=== PATIENT | male | born 1950 | race Caucasian/White ===

== ENCOUNTER 2017-06-13 11:51 | Inpatient (IN) ==
[2017-06-13] MEDS ORDERED: NS 1,000 ML IV ONE ×2 (12:12→13:55)
[2017-06-13] MEDS ORDERED: ONDANSETRON 4 MG/2 ML INJECTION IVP ONE (12:13)
--- OUTSIDE RECORDS SUMMARY | 2017-06-13 12:35 | External Medical Summary | Encounter Summary ---
:1950 Author Organization [facility] Address [address] [place] [address] Care Team Providers Name Role Phone Jeniffer Ochoa DO Unavailable Jaylen Burrows MD Primary Care Provider Ramon Pineda MD Unavailable Reason for Visit Reason Comments Memory Loss follow up Consult, Test & Treat (Routine) Status Reason Specialty Diagnoses / Procedures Referred By Referred To Contact Contact Authorized Neurology Diagnoses Other frontotemporal dementia [facility] [address] [address] Encounter Details Date Type Department Care Team Description 06/05/2017 Office Visit [facility] Ramon Pineda, Frontotemporal dementia (Primary Dx); Physicians - Other secondary parkinsonism (HCC) Neurology [address] [place] [address] [address] [place] [phone] Social History Tobacco Use Types Packs/Day Years Used Date Former Smoker Cigarettes 0.5 40 Quit: 03/14/2015 Smokeless Tobacco: Former User Alcohol Use Drinks/Week oz/Week Comments No Sex Assigned at Date Recorded Not on file as of this encounter Last Filed Vital Signs Vital Sign Reading Time Taken Blood Pressure 123/69 06/05/2017 12:46 PM CDT Pulse 63 06/05/2017 12:46 PM CDT Temperature - - Respiratory Rate - - Oxygen Saturation - - Inhaled Oxygen Concentration - - Weight 90.7 kg (200 lb) 06/05/2017 12:46 PM CDT Height 182.9 cm (6') 06/05/2017 12:46 PM CDT Body Mass Index 27.12 06/05/2017 12:46 PM CDT in this encounter Instructions Patient Instructions - Ramon Pineda MD - 06/05/2017 12:30 PM CDTFormatting of this note may be different from the original. For questions about your visit or medications Call Ida Dennis - For questions about scheduling future visits, procedures, etc Call - ; Fax - LUNCH AND LEARN The [facility] invites you to lunch! Spend a lunch hour with us as experts share their knowledge on various topics about healthy aging. 11:30a-12:30p [facility] [place], [address] [place] [address] June 15, 2017 Cross Train Your Brain July 13, 2017 Aging and Changing -- Does it Impact How You Drive? August 10, 2017 Providing Support & Understanding for Family Caregivers of AD September 14, 2017 Not All Dementia is Created Equal Lunch is provided and reservations are required. Please RSVP through our website at [email or web address] or by calling Help us fight Alzheimer's Consider volunteering to be a study participant in one of our many research studies. We have a variety of research opportunities available for people with and without memory problems. Our program is dedicated to developing better treatments and ways to prevent memory problems for those without problems. We were designated in 2010 as one of the [facility]'s Alzheimer's Disease Centers, joining 31 [facility] institutions working together to better treat and diagnose Alzheimer's. You may have signed our consent form allowing us to contact you if you appear to qualify for a study. But, if you are interested in finding out more about our research right now, please call our program at or go to our web site at [email or web address] for more information. Other Recommendations and Information Stay physically and mentally active. -- Exercise daily. Walking as little as 30 minutes several days a week can have significant health benefits. -- Stay socially and mentally active. Read and work crossword puzzles if you enjoy these activities. Maintaining active social contacts is a good way to stimulate your brain too. Eat a balanced diet. Get plenty of whole grains, fruits, and vegetables every day. If you are not hungry at mealtimes, eat snacks at midmorning and in the afternoon. Try drinks such as Boost, Ensure, or Sustacal if you arehaving trouble keeping your weight up. Driving Deciding to stop driving is very hard for many people. Driving is an important part of one's independence. If you or your family are beginning to have some concerns about your driving, consider a driving evaluation. Driving evaluations can be obtained with a prescription from your Dementia Specialist at : -[facility] ([phone]) or [email or web address] -[facility] ([phone]) or www.[email or web address] -[facility] ([phone]) or http:// [email or web address] Core Composer Machine Tender Our social research assistant Luciano Paul is available to discuss a wide range of issues. Please call Luciano at [phone]. Issues you might consider discussing include 1) Caregiver stress and burden, especially common associated issues such as depression and anxiety. 2) retirement planning including options for in-home care, day programs, and skilled or assisted living facilities 3) Advanced directives 4) Any other issues related to having or caring for someone with memory problems. Advanced Directives If you have not already done so, make a list of advance directives. Advance directives are instructions to your doctor and family members about what kind of care you want if you become unable to speak or express yourself. Talk to a marine equipment test engineer about making a will, if you do not already have one. You can also talk to our Core Composer Machine Tender, Luciano Paul, to discuss this further ([phone]). Education and Support Alzheimer's Association The Alzheimer's Association is an excellent resource for patients and their families. They offer a variety of services and have weekly support groups for patients and their family members. The [facility] [place] chapter is located in [place] ([address] [place] [address]) and serves the [place] area. Please call them to see how they can help ([phone]) or visit their web site at [email or web address]. [facility] Support Group We offer a monthly support group led by Sheila De Jesus. The support group is the sunday of every month from 2 to 3:30 at the [facility] in the [facility] ([address]), [address] [place] [address]. [facility]: The [facility] is a program of the [facility] andoffers programs to empower and transform the mind, body and spirit of people living with serious andchronic physical illness and for their supporters. Programs are provided on topics such as managingthe emotions of living with illness, support for the supporters, resilience, meditation, nutrition, yoga, spirituality, legal issues, communication, brea chi, cancer support, to name a few. [facility] innovative education and support programs inspire people to take charge of their illness and to live life to its fullest. [facility] is located in [place] at [address], [address], [place] [address]. For more information, call or visit their website at [email or web address] for more information and to see their class schedule. If you would like a tour or want help deciding which programs would best fit your needs please ask for Bety Rodríguez, [facility] Adult Driver'S License Reviewing Officer. Contact Us [facility] [address] [facility] [place] [address] [place] [address] To contact us for information on research studies and ongoing trials Main Line: Fax number: For questions about a doctor visit or medications Call Ida Dennis - For questions about scheduling future visits, procedures, etc Call - ; Website: [email or web address] Facebook: [email or web address] in this encounter Progress Notes Ramon Pineda MD - 06/05/2017 12:30 PM CDTFormatting of this note may be different from the original. Referring Provider: Valerie Reinoso MD [address] [place] [address] Chief Complaint: Thomas Calzada is a 66 y.o. old male here for History provided by: , daughter, granddaugther. Onset: 10 years Course: progressive HISTORY Cognitive History (i.e. memory, orientation, judgment): Non verbal. No meaningful interactions with others. Functional History (i.e. home and hobbies, community affairs, bathing / grooming ): Still feeds himself though he may put the spoon to far into his mouth. Less mobile and now using a wheelchair. Unable to do anything on his own. Drinks thickened water, pureed food. Behavioral and Neuropsychiatric History (i.e., depression, agitation, behavior and personality changes): PHQ-2 Score: 3 (06/05/2017 12:47 PM) No meaningful interaction, no clear depression. At times hemay moan and rub his head. Other ROS Visual hallucinations: no Parkinsonism / tremors:stiff neck, legs (right > left) Gait Changes: yes. No longer walking. Vision problems: no Wt loss: no All other ROS are negative Caregiver Ward and Social Support: She still works. 4am to 7am. Doing well with him at home buthas some ups and downs. Safety Assessment (driving, falls, etc): No driving, wheelchair bound now. MEDICATIONS aspirin 81 mg chewable tablet Take 81 mg by mouth daily. ERGOCALCIFEROL (VITAMIN D2) (VITAMIN D PO) Take 4,000 Int'l Units by mouth daily. omeprazole DR(+) (PRILOSEC) 40 mg capsule Take 40 mg by mouth daily. SENNOSIDES (SENNA PO) Take by mouth daily. sertraline (ZOLOFT) 50 mg tablet Take 25 mg by mouth daily. simvastatin (ZOCOR) 40 mg tablet Take 40 mg by mouth at bedtime daily. tamsulosin (FLOMAX) 0.4 mg capsule Take 0.4 mg by mouth daily. Do not crush , chew or open capsules. Take 30 minutes following the same meal each day. High Risk Medication Review: none Relevant Medical History / Contributing Factors to Cognition: none PHYSICAL AND COGNITIVE EXAM Vital Signs: BP 123/69 | Pulse 63 | Ht 182.9 cm (72") | Wt 90.7 kg (200 lb) | BMI 27.12 kg/m Mental Status: Nonverbal. Not following commands. IN wheelchair. Cranial Nerves Extraocular movements intact Pupils equal and reactive to light No facial assymetry Tongue and palate midline Motor Not following commands. Tone increased throughout and in the neck, right > left. Rigid in rightarm and leg > left. Reflexes Symmetric, Increased bilaterally, Toes downgoing Coordination Unable to test Gait Wheelchair bound. Not tested. Neurobehavioral Testing: Untestable. DIAGNOSIS AND PLAN DIAGNOSIS: Problem Parkinsonism (Hcc) Rigidity in all extremities, truncal rigidity. Related to FTD. Frontotemporal Dementia Onset of language disturbance beginning around the age of 56 that has been progressive and he is now non-conversant. MRI shows temporal atrophy with predominant left temporal atrophy anteriorly. 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 Stage: CDR=3, severe dementia. CARE PLAN Cognitive therapy plan Cont sertraline Neuropsychiatric therapy Cont sertraline Continue home health Lifestyle Recommendations Encouraged the to consider penitentiary care options. Referrals Return to clinic in 1 year. in this encounter Plan of Treatment Not on fileas of this encounter Visit Diagnoses Diagnosis Frontotemporal dementia - Primary Other frontotemporal dementia Other secondary parkinsonism (HCC)
--- OUTSIDE RECORDS SUMMARY | 2017-06-13 12:35 | External Medical Summary | Continuity of Care Document ---
:1950 Author Organization [facility] Care Team Providers Name Role Phone Browsersoft Unavailable Unavailable Encounters Location Location Encounter Encounter Reason Attending ADM DC Status Source Details Type Number For Provider Date Date Visit Shaq DORANTES 06/05 06/05 Active [facility]2017 [facility]
--- OUTSIDE RECORDS SUMMARY | 2017-06-13 12:35 | External Medical Summary | Clinical Summary ---
:1950 Author Organization [facility] Address [address] [place] [address] Care Team Providers Name Role Phone Jeniffer Ochoa DO Unavailable Jaylen Burrows MD Primary Care Provider Ramon Pineda MD Unavailable Source Comments Some departments are not documenting in the electronic medical record. If you do not see the information that you expected, contact Release of Information in the Health Information Management department at [phone] for further assistance in locating additional records.[facility] Allergies No Known Allergies Current Medications Prescription Sig. Disp. Refills Start Date End Date Status aspirin 81 mg Take 81 mg by Active chewable tablet mouth daily. ERGOCALCIFEROL Take 4,000 Int'l Active (VITAMIN D2) (VITAMIN Units by mouth D PO) daily. omeprazole DR(+) Take 40 mg by Active (PRILOSEC) 40 mg mouth daily. capsule simvastatin (ZOCOR) Take 40 mg by Active 40 mg tablet mouth at bedtime daily. sertraline (ZOLOFT) Take 25 mg by Active 50 mg tablet mouth daily. tamsulosin (FLOMAX) Take 0.4 mg by Active 0.4 mg capsule mouth daily. Do not crush, chew or open capsules. Take 30 minutes following the same meal each day. SENNOSIDES (SENNA PO) Take by mouth Active daily. lactobacillus Take 1 capsule 06/05/2017 Discontinued rhamnosus GG by mouth as (LACTOBACILLUS directed daily RHAMNOSUS (GG)) 15 with breakfast. billion cell cpSP capsule Active Problems Problem Noted Date Parkinsonism (HCC) 06/05/2017 Overview: Rigidity in all extremities, truncal rigidity. Related to FTD. Frontotemporal dementia 02/15/2015 Overview: Onset of language disturbance beginning around the age of 56 that has been progressive and he is now non-conversant. MRI shows temporal atrophy with predominant left temporal atrophy anteriorly. Cours e is consistent with primary progressive aphasia, semantic variant with etiology of FTD. Last Assessment & Plan: Since his last visit he has declined. He has been having more falls and is rarely conversant. Incontinent of urine and stool. He can feed himself if food is prepared. and daughter continue to car e for him at home but it is getting stressful for both of them. They have looked at a retirement care facility but do not feel either of them are ready for placement yet. We discussed a palliative care consult and they were in agreement. Dr. Pineda was involved in this visit to perform parts of the exam, discuss current condition and disease progression. Discussed retirement care options and when to decide to place him in LTC. We will continue the current dose of sertraline as his mood seems to be stable. Plan: Recommend looking into [facility] Facility due to increased concern for falls. Encourage gait belt when ambulating. Encourage use of walker when ambulating. Stay active mentally, physically and socially. Range of motion to joints daily if possible. Recommend support groups for FTD and Respite Care to help with keeping him at home as long as possible. Palliative care consult. Will consult Luciano Paul to help with palliative care consult. [facility] the [facility] as needed. Acquired aphasia 02/15/2015 Encounters Date Type Specialty Care Team Description 06/05/2017 Office Visit Neurology Ramon Pineda MD Frontotemporal dementia (Primary Dx); Other secondary parkinsonism (HCC) from Last 3 Months Family History Medical History Relation Name Comments Cancer Maternal Grandmother Cancer Mother Cancer Paternal Grandmother Cancer Sister Relation Name Status Comments Maternal Grandmother Mother Paternal Grandmother Sister Alive Social History Tobacco Use Types Packs/Day Years Used Date Former Smoker Cigarettes 0.5 40 Quit: 03/14/2015 Smokeless Tobacco: Former User Alcohol Use Drinks/Week oz/Week Comments No Sex Assigned at Date Recorded Not on file Last Filed Vital Signs Vital Sign Reading Time Taken Blood Pressure 123/69 06/05/2017 12:46 PM CDT Pulse 63 06/05/2017 12:46 PM CDT Temperature - - Respiratory Rate - - Oxygen Saturation 99% 02/12/2015 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
--- OUTSIDE RECORDS SUMMARY | 2017-06-13 12:36 | External Medical Summary | Referral Summary ---
:1950 Author Organization [facility], [facility] Address [address] [place] [address] [place] [id number] Care Team Providers Name Role Phone Jaylen Burrows Primary Care Physician Encounter VC Date(s): 04/14/15 - 04/14/15 [facility], [address] [place] [phone] [place] Discharge Diagnosis: Conjunctivitis Discharge Disposition: 01-Home or Self Care Attending Physician: Sam Reyes PA-C Admitting Physician: Sam Reyes PA-C Vital Signs Most recent to oldest [Reference Range]: 1 Temperature Tympanic [36.6-38.1 degC] 36.7 degC (04/14/15 5:40 PM) Peripheral Pulse Rate [60-100 bpm] 68 bpm (04/14/15 5:40 PM) Blood Pressure [90-140/60-90 mmHg] 124/70 mmHg (04/14/15 5:40 PM) SpO2 96 % (04/14/15 5:40 PM) Problem List Condition Effective Dates Status Health Status Informant Adult-onset obesity(Confirmed) Active Benign prostate Active hypertrophy(Confirmed) Colonoscopy(Confirmed)1, 2 05/11/03 Resolved Cough(Confirmed) Active Dementia(Confirmed) Active GERD without esophagitis(Confirmed) Active Hyperlipidemia(Confirmed) Active Kidney stone(Confirmed) Active Lung nodule(Confirmed) Active Parkinson disease(Confirmed) Active Prostate nodule(Confirmed) Active Current smoker(Confirmed) Active Wheezing(Confirmed) Active [id number] Allergies, Adverse Reactions, Alerts No Known Allergies Medications aspirin 81 mg, Oral, Daily, 0 Refill(s) Start Date: 09/26/13 Status: OrderedDulcolax Stool Softener mg, Oral, Daily, 0 Refill(s) Start Date: 03/26/15 Status: OrderedPriLOSEC 40 mg oral delayed release capsule See Instructions, TAKE ONE CAPSULE BY MOUTH ONCE A DAY, # 30 caps, 5 Refill(s), eRx: [facility] #[id number], TAKE ONE CAPSULE BY MOUTH ONCE A DAY Start Date: 11/02/14 Status: Orderedsertraline Oral, Daily, 0 Refill(s) Start Date: 04/14/15 Status: Orderedsimvastatin 40 mg oral tablet See Instructions, TAKE ONE TABLET BY MOUTH EVERY NIGHT AT BEDTIME, # 90 tabs, eRx: [facility] #[id number], TAKE ONE TABLET BY MOUTH EVERY NIGHT AT BEDTIME Start Date: 01/08/15 Status: OrderedVitamin B-12 0 Refill(s) Start Date: 10/30/13 Status: OrderedVitamin D with Minerals oral tablet 1 tabs, Oral, Daily, 0 Refill(s) Start Date: 09/26/13 Status: Ordered Results No data available for this section Immunizations No data available for this section Procedures Procedure Date Related Diagnosis Body Site Colonoscopic polypectomy1 10/17/13 Esophagogastroduodenoscopy and biopsy2 10/17/13 Colonoscopy3 05/11/03 Esophagogastroduodenoscopy and biopsy4 05/11/03 1Tubular adenoma 1, repeat in 5 [id number] chronic inflammation distal esophagus, no Grace's, no cancer, continue [id number] antritis, minimal grace's metaplasia, distal esophagitis Social History Social History Type Response Smoking Status Former smoker; Type: Cigarettes Assessment and Plan Extracted from: Title: eyes Author: Sam Reyes PA-C Date: 04/14/15 Assessment/Plan Conjunctivitis This is an allergic conjunctivitisWe will perform an eyewash, I recommended Visine A; follow upwith Dr. Burrows if symptoms worsen , if he develops purulent drainage mucoid materi al significant redness or pain in the eye or if he does not improve. I recommended continuing Benadryl at at bedtime if he still having evening symptoms and seems to tolerate it well.
--- OUTSIDE RECORDS SUMMARY | 2017-06-13 12:36 | External Medical Summary | Referral Summary ---
:1950 Author Organization [facility], [facility] Address [address] [place] [address] [place] [phone] Care Team Providers Name Role Phone RadhasusanJaylen kahn Primary Care Physician Encounter VC Date(s): 10/23/14 - 10/23/14 [facility] [address] [place] [address] [place] [phone] [place] Discharge Diagnosis: Benign prostatic hyperplasia Discharge Diagnosis: Prostate nodule Discharge Disposition: 01-Home or Self Care Attending Physician: Natalio Jimenez JR, MD Admitting Physician: Natalio Jimenez JR, MD Vital Signs Most recent to oldest [Reference Range]: 1 Peripheral Pulse Rate [60-100 bpm] 72 bpm (10/23/14 2:33 PM) Blood Pressure [90-140/60-90 mmHg] 118/64 mmHg (10/23/14 2:33 PM) Problem List Condition Effective Dates Status Health Status Informant Adult-onset obesity(Confirmed) Active Benign prostate Active hypertrophy(Confirmed) Colonoscopy(Confirmed)1, 2 05/11/03 Resolved Cough(Confirmed) Active Dementia(Confirmed) Active GERD without esophagitis(Confirmed) Active Hyperlipidemia(Confirmed) Active Kidney stone(Confirmed) Active Lung nodule(Confirmed) Active Parkinson disease(Confirmed) Active Prostate nodule(Confirmed) Active Current smoker(Confirmed) Active Wheezing(Confirmed) Active [id number] Allergies, Adverse Reactions, Alerts No Known Allergies Medications aspirin 81 mg, Oral, Daily, 0 Refill(s) Start Date: 09/26/13 Status: Orderedescitalopram 10 mg oral tablet 0.5 tabs, Oral, Daily[facility] Refill([facility]) Start Date: 05/22/14 Status: OrderedpredniSONE 20 mg oral tablet 20 mg 1 tabs, Oral, Daily, X 5 days, # 5 tabs, 0 Refill(s), Pharmacy: [facility] #[id number], 1 tabs Oral Daily,x5 days Start Date: 01/07/15 Stop Date: 01/12/15 Status: OrderedPriLOSEC 40 mg oral delayed release capsule See Instructions, TAKE ONE CAPSULE BY MOUTH ONCE A DAY, # 30 caps, 5 Refill(s), eRx: [facility] #[id number], TAKE ONE CAPSULE BY MOUTH ONCE A DAY Start Date: 11/02/14 Status: Orderedsimvastatin 40 mg oral tablet See Instructions, TAKE ONE TABLET BY MOUTH EVERY NIGHT AT BEDTIME, # 90 tabs, eRx: [facility] #[id number], TAKE ONE TABLET BY MOUTH EVERY NIGHT AT BEDTIME Start Date: 01/08/15 Status: OrderedVitamin B-12 0 Refill(s) Start Date: 10/30/13 Status: OrderedVitamin D with Minerals oral tablet 1 tabs, Oral, Daily, 0 Refill(s) Start Date: 09/26/13 Status: Ordered Results Chemistry Most recent to oldest [Reference Range]: 1 PSA (wihout Reflex Free) [0.0-4.5 ng/mL] 0.9 ng/mL 1 (10/23/14 2:00 PM) 1Result Comment: [facility] PSA Best Practice Guidelines: Age-Adjusted PSA Values by Ethnic Group Age Range Asians - Caucasians Americans 40-49 0-2.0 0-2.0 0-2.5 50-59 0-3.0 0-4.0 0-3.5 60-69 0-4.0 0-4.5 0-4.5 70-79 0-5.0 0-5.5 0-6.5 Immunizations No data available for this section Procedures Procedure Date Related Diagnosis Body Site Colonoscopic polypectomy1 10/17/13 Esophagogastroduodenoscopy and biopsy2 10/17/13 Colonoscopy3 05/11/03 Esophagogastroduodenoscopy and biopsy4 05/11/03 1Tubular adenoma 1, repeat in 5 [id number] chronic inflammation distal esophagus, no Grace's, no cancer, continue [id number] antritis, minimal grace's metaplasia, distal esophagitis Social History Social History Type Response Smoking Status Current every day smoker; Type: Cigarettes Assessment and Plan Extracted from: Title: Ambulatory Patient Education Author: Natalio Jimenez JR, MD Date: Follow Up With: Where: When: Jaylen Bolanosfemi [address] [place] [address] Drive; [place] [address] Business (1) Within 3 to 5 days Comments: Follow Up With: Where: When: Natalio Barbara [address] [place] [address] Drive; [place] [address] Business (1) In 1 year 10/24/2015 Comments: Extracted from: Title: Office Visit Note Author: Natalio Jimenez JR, MD Date: 10/23/14 Assessment/Plan Benign prostatic hyperplasia patient not taking any prostate medication at present. He had a PSA done today I don't have that report yet Ordered: Office Visit Level 3 Est 03740 Prostate nodule I could not feel any prostatic nodule on this prostate examination today. Recheck in my office in one year PSA a week before next visit or to come and see me sooner if having troubles with urination
--- OUTSIDE RECORDS SUMMARY | 2017-06-13 12:36 | External Medical Summary | Referral Summary ---
:1950 Author Organization [facility] Address [address] [place] [address] [place] [phone] Care Team Providers Name Role Phone Jaylen Burrows Primary Care Physician Encounter VC Date(s): 10/23/14 - 10/23/14 [facility] [address] [place] [address] [place] [phone] [place] Discharge Diagnosis: Benign [...] Condition Effective Dates Status Health Status Informant Benign prostate Active hypertrophy(Confirmed) Colonoscopy(Confirmed)1, 2 05/11/03 Resolved Dementia(Confirmed) Active GERD without esophagitis(Confirmed) Active Hyperlipidemia(Confirmed) Active Kidney stone(Confirmed) Active Parkinson disease(Confirmed) Active Prostate nodule(Confirmed) Active [id number] Allergies, Adverse Reactions, Alerts No Known Allergies Medications aspirin 81 mg, Oral, Daily, 0 Refill(s) Start Date: 09/26/13 Status: Orderedescitalopram 10 mg oral tablet 0.5 tabs, Oral, [facility] Start Date: 05/22/14 Status: OrderedPriLOSEC 40 mg oral delayed release capsule See Instructions, TAKE ONE CAPSULE BY MOUTH ONCE A DAY, # 30 caps, 5 Refill(s), eRx: [facility] #[id number], TAKE ONE CAPSULE BY MOUTH ONCE A DAY Start Date: 11/02/14 Status: Orderedsimvastatin 40 mg oral tablet See Instructions, TAKE ONE TABLET BY MOUTH EVERY NIGHT AT BEDTIME, # 90 tabs, eRx: [facility] #[id number], TAKE ONE TABLET BY MOUTH EVERY NIGHT AT BEDTIME Start Date: 10/05/14 Status: OrderedVitamin B-12 0 Refill(s) Start Date: [...] 05/11/03 1Tubular adenoma 1, repeat in 5 [id number] chronic inflammation distal esophagus, no Grace's, no cancer, continue [id number] antritis, minimal grace's metaplasia, distal esophagitis Social History Social History Type Response Smoking Status Current every day smoker; Type: Cigarettes Assessment and Plan Extracted from: Title: Ambulatory Patient Education Author: Natalio Jimenez JR, MD Date: Follow Up With: Where: When: Jaylen Burrows [address] [place] [address] Drive; [place] [address] Business (1) Within 3 to 5 days Comments: Follow Up With: Where: When: Natalio Jimenez [address] [place] [address] Drive; [place] [address] Business (1) In 1 year 10/24/2015 Comments: Extracted from: Title: Office Visit Note Author: Natalio Jimenez JR, MD Date: 10/23/14 Assessment/Plan Benign prostatic hyperplasia patient not taking any prostate medication at present. He had a PSA done today I don't have that report yet Ordered: Office Visit Level 3 Est 10291 Prostate nodule I could not feel any prostatic nodule on this prostate examination today. Recheck in my office in one year PSA a week before next visit or to come and see me sooner if having troubles with urination
--- OUTSIDE RECORDS SUMMARY | 2017-06-13 12:36 | External Medical Summary | Referral Summary ---
:1950 Author Organization [facility] Address [address] [place] [address] [place] [phone] Care Team Providers Name Role Phone RadhasusanJaylen kahn Primary Care Physician Encounter VC Date(s): 10/23/14 - 10/23/14 [facility] [address] [place] [address] [place] [phone] [place] Discharge Diagnosis: Benign [...] nodule(Confirmed) Active Current smoker(Confirmed) Active Wheezing(Confirmed) Active [id number] Allergies, Adverse Reactions, Alerts No Known Allergies Medications aspirin 81 mg, Oral, Daily, 0 Refill(s) Start Date: 09/26/13 Status: Orderedescitalopram 10 mg oral tablet 0.5 tabs, Oral, Daily[facility], [facility] Refill(s) Start Date: 05/22/14 Status: OrderedpredniSONE 20 mg oral tablet 20 mg 1 tabs, Oral, Daily, X 5 days, # 5 tabs, 0 Refill(s), Pharmacy: [facility] #[id number], 1 tabs Oral Daily,x5 days Start Date: 01/07/15 Stop Date: 01/12/15 Status: OrderedPriLOSEC 40 mg oral delayed release capsule See Instructions, TAKE ONE CAPSULE BY MOUTH ONCE A DAY, # 30 caps, 5 Refill(s), eRx: [facility] #[id number], TAKE ONE CAPSULE BY MOUTH ONCE A DAY Start Date: 11/02/14 Status: Orderedsimvastatin 40 mg oral tablet See Instructions, TAKE ONE TABLET BY MOUTH EVERY NIGHT AT BEDTIME, # 90 tabs, eRx: [facility] #[id number], TAKE ONE TABLET BY MOUTH EVERY NIGHT [...] 05/11/03 1Tubular adenoma 1, repeat in 5 [id number] chronic inflammation distal esophagus, no Grace's, no cancer, continue [id number] antritis, minimal grace's metaplasia, distal esophagitis Social History Social History Type Response Smoking Status Current every day smoker; Type: Cigarettes Assessment and Plan Extracted from: Title: Ambulatory Patient Education Author: Natalio Jimenez JR, MD Date: Follow Up With: Where: When: Jaylen Bolanosfemi [address] [place] [address] Drive; [place] [address] Business (1) Within 3 to 5 days Comments: Follow Up With: Where: When: Natalio Barbara [address] [place] [address] Drive; [place] [address] Business (1) In 1 year 10/24/2015 Comments: Extracted from: Title: Office Visit Note Author: Natalio Jimenez JR, MD Date: 10/23/14 Assessment/Plan Benign prostatic hyperplasia patient not taking any prostate medication at present. He had a PSA done today I don't have that report yet Ordered: Office Visit Level 3 Est 30918 Prostate nodule I could not feel any prostatic nodule on this prostate examination today. Recheck in my office in one year PSA a week before next visit or to come and see me sooner if having troubles with urination
--- OUTSIDE RECORDS SUMMARY | 2017-06-13 12:36 | External Medical Summary | Referral Summary ---
:1950 Author Organization [facility] Address [address] [place] [address] [place] [phone] Care Team Providers Name Role Phone RadhasusanJaylen kahn Primary Care Physician Encounter VC Date(s): 10/23/14 - 10/23/14 [facility] [address] [place] [address] [place] [phone] [place] Discharge Diagnosis: Benign [...] nodule(Confirmed) Active Current smoker(Confirmed) Active Wheezing(Confirmed) Active [id number] Allergies, Adverse Reactions, Alerts No Known Allergies Medications aspirin 81 mg, Oral, Daily, 0 Refill(s) Start Date: 09/26/13 Status: Orderedescitalopram 10 mg oral tablet 0.5 tabs, Oral, Daily[facility], [facility] Refill(s) Start Date: 05/22/14 Status: OrderedpredniSONE 20 mg oral tablet 20 mg 1 tabs, Oral, Daily, X 5 days, # 5 tabs, 0 Refill(s), Pharmacy: [facility] #[id number], 1 tabs Oral Daily,x5 days Start Date: 01/07/15 Stop Date: 01/12/15 Status: OrderedPriLOSEC 40 mg oral delayed release capsule See Instructions, TAKE ONE CAPSULE BY MOUTH ONCE A DAY, # 30 caps, 5 Refill(s), eRx: [facility] #[id number], TAKE ONE CAPSULE BY MOUTH ONCE A DAY Start Date: 11/02/14 Status: Orderedsimvastatin 40 mg oral tablet See Instructions, TAKE ONE TABLET BY MOUTH EVERY NIGHT AT BEDTIME, # 90 tabs, eRx: [facility] #[id number], TAKE ONE TABLET BY MOUTH EVERY NIGHT [...] 05/11/03 1Tubular adenoma 1, repeat in 5 [id number] chronic inflammation distal esophagus, no Grace's, no cancer, continue [id number] antritis, minimal grace's metaplasia, distal esophagitis Social History Social History Type Response Smoking Status Current every day smoker; Type: Cigarettes Assessment and Plan Extracted from: Title: Ambulatory Patient Education Author: Natalio Jimenez JR, MD Date: Follow Up With: Where: When: Jaylen Bolanosfemi [address] [place] [address] Drive; [place] [address] Business (1) Within 3 to 5 days Comments: Follow Up With: Where: When: Natalio Barbara [address] [place] [address] Drive; [place] [address] Business (1) In 1 year 10/24/2015 Comments: Extracted from: Title: Office Visit Note Author: Natalio Jimenez JR, MD Date: 10/23/14 Assessment/Plan Benign prostatic hyperplasia patient not taking any prostate medication at present. He had a PSA done today I don't have that report yet Ordered: Office Visit Level 3 Est 88815 Prostate nodule I could not feel any prostatic nodule on this prostate examination today. Recheck in my office in one year PSA a week before next visit or to come and see me sooner if having troubles with urination
--- OUTSIDE RECORDS SUMMARY | 2017-06-13 12:36 | External Medical Summary | Referral Summary ---
:1950 Author Organization [facility] [place] [phone] Care Team Providers Name Role Phone Jaylen Burrows Primary Care Physician Encounter VC Date(s): 01/07/15 - 01/07/15 [facility] [place] [phone] [place] Discharge Disposition: 01-Home or Self Care Attending Physician: Jaylen Burrows MD Admitting Physician: Jaylen Burrows MD Vital Signs Most recent to oldest [Reference Range]: 1 Blood Pressure [90-140/60-90 mmHg] 120/80 mmHg (01/07/15 3:59 PM) Problem List Condition Effective Dates Status Health Status Informant Adult-onset obesity(Confirmed) Active Benign prostate Active hypertrophy(Confirmed) Colonoscopy(Confirmed)1, 2 05/11/03 Resolved Cough(Confirmed) Active Dementia(Confirmed) Active GERD without esophagitis(Confirmed) Active Hyperlipidemia(Confirmed) Active Kidney stone(Confirmed) Active Lung nodule(Confirmed) Active Parkinson disease(Confirmed) Active Prostate nodule(Confirmed) Active Current smoker(Confirmed) Active Wheezing(Confirmed) Active [id number] Allergies, Adverse Reactions, Alerts No Known Allergies Medications aspirin 81 mg, Oral, Daily, 0 Refill(s) Start Date: 09/26/13 Status: Orderedescitalopram 10 mg oral tablet 0.5 tabs, Oral, Daily, got from [facility], 0 Refill(s) Start Date: 05/22/14 Status: OrderedpredniSONE 20 mg oral tablet 20 mg 1 tabs, Oral, Daily, X 5 days, # 5 tabs, 0 Refill(s), Pharmacy: [facility] #[id number], 1 tabs Oral Daily,x5 days Start Date: 01/07/15 Stop Date: 01/12/15 Status: OrderedPriLOSEC 40 mg oral delayed release capsule See Instructions, TAKE ONE CAPSULE BY MOUTH ONCE A DAY, # 30 caps, 5 Refill(s), eRx: [facility] #[id number], TAKE ONE CAPSULE BY MOUTH ONCE A DAY Start Date: 11/02/14 Status: Orderedsimvastatin 40 mg oral tablet See Instructions, TAKE ONE TABLET BY MOUTH EVERY NIGHT AT BEDTIME, # 90 tabs, eRx: [facility] #[id number], TAKE ONE TABLET BY MOUTH EVERY NIGHT [...] 05/11/03 1Tubular adenoma 1, repeat in 5 [id number] chronic inflammation distal esophagus, no Grace's, no cancer, continue [id number] antritis, minimal grace's metaplasia, distal esophagitis Social History Social History Type Response Smoking Status Current every day smoker; Type: Cigarettes Assessment and Plan Extracted from: Title: Ambulatory Patient Education Author: Jaylen Burrows MD Date: Family Medicine Alzheimer Disease Alzheimer disease is a mental disorder. It causes memory loss and loss of other mental functions, such as learning, thinking, problem solving, communicating, and completing tasks. The mental losses inte rfere with the ability to perform daily activities at work, at home, or in social situations. Alzheimer disease usually starts in a person's late 60s or early 70s but can start earlier in life (familial form). The mental changes caused by this disease are permanent and worsen over time. As the i llness progresses, the ability to do even the simplest things is lost. Survival with Alzheimer disease ranges from several years to as long as 20 years. CAUSES Alzheimer disease is caused by abnormally high levels of a protein (beta- amyloid) in the brain. This protein forms very small deposits within and around the brain's nerve cells. These deposits prevent t he nerve cells from working properly. Experts are not certain what causes the beta-amyloid deposits in this disease. RISK FACTORS The following major risk factors have been identified: Increasing age. Certain genetic variations, such as Down syndrome (trisomy 21). SYMPTOMS In the early stages of Alzheimer disease, you are still able to perform daily activities but need greater effort, more time, or memory aids. Early symptoms include: Mild memory loss of recent events, names, or phone numbers. Loss of objects. Minor loss of vocabulary. Difficulty with complex tasks, such as paying bills or driving in unfamiliar locations. Other mental functions deteriorate as the disease worsens. These changes slowly go from mild to severe. Symptoms at this stage include: Difficulty remembering. You may not be able to recall personal information such as your address and telephone number. You may become confused about the date, the season of the year, or your location. Difficulty maintaining attention. You may forget what you wanted to say during conversations and repeat what you have already said. Difficulty learning new information or tasks. You may not remember what you read or the name of a new friend you met. Difficulty counting or doing math. You may have difficulty with complex math problems. You may make mistakes in paying bills or managing your checkbook. Poor reasoning and judgment. You may make poor decisions or not dress right for the weather. Difficulty communicating. You may have regular difficulty remembering words, naming objects, expressing yourself clearly, or writing sentences that make sense. Difficulty performing familiar daily activities. You may get lost driving in familiar locations or need help eating, bathing, dressing, grooming, or using the toilet. You may have difficulty maintaining bladder or bowel control. Difficulty recognizing familiar faces. You may confuse family members or close friends with one another. You may not recognize a close relative or may mistake strangers for family. Alzheimer disease also may cause changes in personality and behavior. These changes include: Loss of interest or motivation. Social withdrawal. Anxiety. Difficulty sleeping. Uncharacteristic anger or combativeness. A false belief that someone is trying to harm you (paranoia). Seeing things that are not real (hallucinations). Agitation. Confusion and disruptive behavior are often worse at night and may be triggered by changes in the environment or acute medical issues. DIAGNOSIS Alzheimer disease is diagnosed through an assessment by your health care provider. During this assessment, your health care provider will do the following: Ask you and your family, friends, or caregivers questions about your symptoms, their frequency, their duration and progression, and the effect they are having on your life. Ask questions about your personal and family medical history and use of alcohol or drugs, including prescription medicine. Perform a physical exam and order blood tests and brain imaging exams. Your health care provider may refer you to a specialist for detailed evaluation of your mental functions (neuropsychological testing). Many different brain disorders, medical conditions, and certain substances can cause symptoms that resemble Alzheimer disease symptoms. These must be ruled out before this disease can be diagnosed. If A lzheimer disease is diagnosed, it will be considered either "possible" or "probable" Alzheimer disease. "Possible" Alzheimer disease means that your symptoms are typical of the disease and no other diso rder is causing them. "Probable" Alzheimer disease means that you also have a family history of the disease or genetic test results that support the diagnosis. Certain tests, mostly used in research aura dies, are highly specific for Alzheimer disease. TREATMENT There is currently no cure for this disease. The goals of treatment are to: Slow down the progression of the disease. Preserve mental function as long as possible. Manage behavioral symptoms. Make life easier for the person with Alzheimer disease and his or her caregivers. The following treatment options are available: Medicine. Certain medicines may help slow memory loss by changing the level of certain chemicals in the brain. Medicine may also help with behavioral symptoms. Talk therapy. Talk therapy provides education, support, and memory aids for people with this disease. It is most effective in the early stages of the illness. Caregiving. Caregivers may be family members, friends, or trained medical donation professional. They help the person with Alzheimer disease with daily life activities. Caregiving may take place at home or at a nursing facility. Family support groups. These provide education, emotional support, and information about community resources to family members who are taking care of the person with this disease. Document Released: 10/31/2004 Document Revised: 07/06/2014 Document Reviewed: 06/27/2013 ExitCare Patient Information 2015 [employer]. This information is not intended to replace advice given to you by your health care provider. Make sure you discuss any questions you have with your health care provider. No follow up information was provided. Extracted from: Title: Office Visit Note Author: Jaylen Burrows MD Date: 01/07/15 Assessment/Plan Adult-onset obesity Diet and exercise as tolerated and feasible. Consider medication when interested. Cough Discussed multiple potential causes including smoking. We discussed several options for treatment for this condition. The patient declined any changes or other treatments at this time. Consider inhaler or consult when desired. Zpack and prednisone 20mg po daily for five days was given. Trial of these meds and call report if not improved. Current smoker Smoking Cessatin was discussed. The patient is welcome to f/u for therapy or medication for smoking cessation at any time that they are willing to quit. The patient has family memb ers present who are agreeable with today's plan and have no additional concerns or requests. Regina here. Dementia This issue was reviewed, appears stable, and current therapy continued except as mentioned. Appropriate lab was reviewed from the most recent appropriate entry and lab was ordered if needed in the cpoe/nursing orders, and follow up arranged. GERD without esophagitis This issue was reviewed, appears stable, and current therapy continued except as mentioned. Appropriate lab was reviewed from the most recent appropriate entry and lab was o rdered if needed in the cpoe/nursing orders, and follow up arranged. Has prilosec. Kidney stone The patient's issue is nearly or completely resolved. There is no further issues or testing desired by them at this time. Lung nodule Impression: Nodular density of the lateral left lower chest is slightly less prominent today. No new or additional abnormality is seen.. [1] May warrant repeat CT contingent on cxr results. Parkinson disease 1. 4 mm lingular nodule is stable. Previously described 5 mm nodular density in an area of left lower lobe linear scarring is thought to be either a granuloma or normal vascular structure on today's images. 2. Parenchymal and subpleural densities in the right lower lobe, likely scarring, have diminished in size and extent, probably due to better detail on today's CT images without respiratory motion artifact. 3. In this patient with a significant smoking history, follow-up CT imaging is now recommended in 9 months. This will be one year since the date of nodule detection. 4. Possible punctate nonobstructing left renal calculus. [2] Prostate nodule This issue was reviewed, appears stable, and current therapy continued except as mentioned. Appropriate lab was reviewed from the most recent appropriate entry and lab was ordered if needed in the cpoe/nursing orders, and follow up arranged. See recent lab. Wheezing We discussed several options for treatment for this condition. The patient declined any changes or other treatments at this time. Has zpack and prednisone and will call.
--- OUTSIDE RECORDS SUMMARY | 2017-06-13 12:36 | External Medical Summary | Referral Summary ---
:1950 Author Organization [facility] [place] [address] Care Team Providers Name Role Phone RadhaellaJaylen Primary Care Physician Encounter VC Date(s): 04/14/15 - 04/14/15 [facility] [place] [phone] [place] Discharge Disposition: 01-Home or Self Care Attending Physician: Sam Reyes PA-C Admitting Physician: Sam Reyes PA-C Vital Signs No data available for this section Problem List Condition Effective Dates Status Health Status Informant Adult-onset obesity(Confirmed) Active Benign prostate Active hypertrophy(Confirmed) Colonoscopy(Confirmed)1, 2 05/11/03 Resolved Cough(Confirmed) Active Dementia(Confirmed) Active GERD without esophagitis(Confirmed) Active Hyperlipidemia(Confirmed) Active Kidney stone(Confirmed) Active Lung nodule(Confirmed) Active Parkinson disease(Confirmed) Active Prostate nodule(Confirmed) Active Current smoker(Confirmed) Active Wheezing(Confirmed) Active [id number] Allergies, Adverse Reactions, Alerts No Known Allergies Medications aspirin 81 mg, Oral, Daily, 0 Refill(s) Start Date: 09/26/13 Status: OrderedDulcolax Stool Softener mg, Oral, Daily, 0 Refill(s) Start Date: 03/26/15 Status: OrderedPriLOSEC 40 mg oral delayed release capsule See Instructions, TAKE ONE CAPSULE BY MOUTH ONCE A DAY, # 30 caps, 5 Refill(s), eRx: [facility] #[id number], TAKE ONE CAPSULE BY MOUTH ONCE A DAY Start Date: 11/02/14 Status: Orderedsertraline Oral, Daily, 0 Refill(s) Start Date: 04/14/15 Status: Orderedsimvastatin 40 mg oral tablet See Instructions, TAKE ONE TABLET BY MOUTH EVERY NIGHT AT BEDTIME, # 90 tabs, eRx: [facility] #[id number], TAKE ONE TABLET BY MOUTH EVERY NIGHT [...] 05/11/03 1Tubular adenoma 1, repeat in 5 [id number] chronic inflammation distal esophagus, no Grace's, no cancer, continue [id number] antritis, minimal grace's metaplasia, distal esophagitis Social History Social History Type Response Smoking Status Former smoker; Type: Cigarettes Assessment and Plan No data available for this section
--- OUTSIDE RECORDS SUMMARY | 2017-06-13 12:36 | External Medical Summary | Referral Summary ---
:1950 Author Organization [facility] [place] [id number] Care Team Providers Name Role Phone Jaylen Burrwos Primary Care Physician Encounter VC Date(s): 03/26/15 - 03/26/15 [facility] [place] [phone] [place] Discharge Disposition: 01-Home or Self Care Attending Physician: Jaylen Burrows MD Admitting Physician: Jaylen Burrows MD Vital Signs Most recent to oldest [Reference Range]: 1 Blood Pressure [90-140/60-90 mmHg] 130/70 mmHg (03/26/15 11:37 AM) Problem List Condition Effective Dates Status Health Status Informant Adult-onset obesity(Confirmed) Active Benign prostate Active hypertrophy(Confirmed) Colonoscopy(Confirmed)1, 2 05/11/03 Resolved Cough(Confirmed) Active Dementia(Confirmed) Active GERD without esophagitis(Confirmed) Active Hyperlipidemia(Confirmed) Active Kidney stone(Confirmed) Active Lung nodule(Confirmed) Active Parkinson disease(Confirmed) Active Prostate nodule(Confirmed) Active Current smoker(Confirmed) Active Wheezing(Confirmed) Active [id number] Allergies, Adverse Reactions, Alerts No Known Allergies Medications aspirin 81 mg, Oral, Daily, 0 Refill(s) Start Date: 09/26/13 Status: OrderedDulcolax Stool Softener mg, Oral, Daily, 0 Refill(s) Start Date: 03/26/15 Status: Orderedescitalopram 10 mg oral tablet 0.5 tabs, Oral, Daily[facility] Start Date: 05/22/14 Status: OrderedPriLOSEC 40 mg oral delayed release capsule See Instructions, TAKE ONE CAPSULE BY MOUTH ONCE A DAY, # 30 caps, 5 Refill(s), eRx: [facility] #[id number], TAKE ONE CAPSULE BY MOUTH ONCE A DAY Start Date: 11/02/14 Status: Orderedsimvastatin 40 mg oral tablet See Instructions, TAKE ONE TABLET BY MOUTH EVERY NIGHT AT BEDTIME, # 90 tabs, eRx: [facility] #[id number], TAKE ONE TABLET BY MOUTH EVERY NIGHT [...] 05/11/03 1Tubular adenoma 1, repeat in 5 [id number] chronic inflammation distal esophagus, no Grace's, no cancer, continue [id number] antritis, minimal grace's metaplasia, distal esophagitis Social [...] be family members, friends, or trained medical education specialist. They help the person with Alzheimer disease with daily life activities. Caregiving may take place at home or at a nursing facility. Family support groups. These provide education, emotional support, and information about community resources to family members who are taking care of the person with this disease. Document Released: 10/31/2004 Document Revised: 07/06/2014 Document Reviewed: 06/27/2013 ExitCare Patient Information 2015 [facility]. This information is not intended to replace advice given to you by your health care provider. Make sure you discuss any questions you have with your health care provider. No follow up information was provided. Extracted from: Title: Office Visit Note Author: Jaylen Burrows MD Date: 03/26/15 Assessment/Plan Adult-onset obesity Diet and exercise as tolerated and feasible. Consider medication when interested. BPH (benign prostatic hyperplasia) We discussed several options for treatment for this condition. The patient declined any changes or other treatments at this time. Meds and referral discussed and declined for now. Current smoker She made him quit. He is a firerisk if smoking. Dark stools We discussed several options for treatment for this condition. The patient declined any changes or other treatments at this time. Declines hemoccults or lab or consult. Dementia Stable. Refused consult. I am unwilling to give him a scooter due to clear dementia and fall risk.They are welcome to havea referral to [facility] and neurology for a second opinion w hen interested. They plan to self pay against advice. GERD without esophagitis This issue was reviewed, appears stable, and current therapy continued except as mentioned. Appropriate lab was reviewed from the most recent appropriate entry and lab was o rdered if needed in the cpoe/nursing orders, and follow up recommended generally in 90 days and no later then six months. Hyperlipidemia This issue was reviewed, appears stable, and current therapy continued except as mentioned. Appropriate lab was reviewed from the most recent appropriate entry and lab was ordered if needed in the cpoe/nursing orders, and follow up recommended generally in 90 days and no later then six months. [facility] Lung nodule The patient's issue is nearly or completely resolved. There is no further issues or testing desired by them at this time. IMPRESSION: Previous pulmonary nodules not identified in the radiograph. [1]
--- OUTSIDE RECORDS SUMMARY | 2017-06-13 12:36 | External Medical Summary | Referral Summary ---
:1950 Author Organization [facility] [place] [id number] Care Team Providers Name Role Phone Jaylen Burrows Primary Care Physician Encounter VC Date(s): 10/13/15 - 10/13/15 [facility] [place] [phone] [place] Discharge Diagnosis: Fatigue Discharge Diagnosis: Frequency of micturition Discharge Diagnosis: Unstable balance Discharge Disposition: 01-Home or Self Care Attending Physician: Miesha Wallis PA-C Admitting Physician: Miesha Wallis PA-C Vital Signs Most recent to oldest [Reference Range]: 1 Temperature Tympanic [36.6-38.1 degC] 36.5 degC *LOW* (10/13/15 4:00 PM) Peripheral Pulse Rate [60-100 bpm] 78 bpm (10/13/15 4:00 PM) Respiratory Rate [14-20 br/min] 18 br/min (10/13/15 4:00 PM) Blood Pressure [90-140/60-90 mmHg] 112/78 mmHg (10/13/15 4:00 PM) Problem List Condition Effective Dates Status Health Status Informant Adult-onset obesity(Confirmed) Active Benign prostate Active hypertrophy(Confirmed) Colonoscopy(Confirmed)1, 2 05/11/03 Resolved Cough(Confirmed) Active Dementia(Confirmed) Active GERD without esophagitis(Confirmed) Active Hyperlipidemia(Confirmed) Active Kidney stone(Confirmed) Active Lung nodule(Confirmed) Active Parkinson disease(Confirmed) Active Prostate nodule(Confirmed) Active Current smoker(Confirmed) Active Wheezing(Confirmed) Active [id number] Allergies, Adverse Reactions, Alerts No Known Allergies Medications aspirin 81 mg, Oral, Daily, 0 Refill(s) Start Date: 09/26/13 Status: OrderedDulcolax Stool Softener mg, Oral, Daily, 0 Refill(s) Start Date: 03/26/15 Status: OrderedPriLOSEC 40 mg oral delayed release capsule See Instructions, TAKE ONE CAPSULE BY MOUTH DAILY, # 30 caps, 12 Refill(s), eRx : [facility] #[id number], TAKE ONE CAPSULE BY MOUTH DAILY Start Date: 05/06/15 Status: Orderedsertraline See Instructions, Oral Daily 1.25 ML DAILY, 0 Refill(s) Start Date: 04/14/15 Status: Orderedsimvastatin 40 mg oral tablet See Instructions, TAKE ONE TABLET BY MOUTH EVERY NIGHT AT BEDTIME, # 90 tabs, eRx: [facility] #[id number], TAKE ONE TABLET BY MOUTH EVERY NIGHT AT BEDTIME Start Date: 05/06/15 Status: Orderedtamsulosin 0.4 mg oral capsule 0.4 mg 1 caps, Oral, Daily, # 30 caps, 0 Refill(s) Start Date: 10/13/15 Status: OrderedVitamin B-12 0 Refill(s) Start Date: 10/30/13 Status: Ordered Results Hematology Most recent to oldest [Reference Range]: 1 WBC [4.8-10.8 10*3/uL] 7.2 10*3/uL (10/13/15 4:35 PM) RBC [4.60-6.20] 4.88 (10/13/15 4:35 PM) Hgb [14.0-18.0 gm/dL] 15.4 gm/dL (10/13/15 4:35 PM) Hct [42.0-52.0 %] 45.6 % (10/13/15 4:35 PM) MCV [82.0-99.0 fL] 93.4 fL (10/13/15 4:35 PM) MCH [27.0-32.0 pg] 31.6 pg (10/13/15 4:35 PM) MCHC [32.0-36.0 gm/dL] 33.8 gm/dL (10/13/15 4:35 PM) RDW [11.5-14.5 %] 13.2 % (10/13/15 4:35 PM) Platelet [150-400 10*3/uL] 274 10*3/uL (10/13/15 4:35 PM) MPV [8.8-14.8 fL] 11.3 fL (10/13/15 4:35 PM) Immature Granulocytes [0.0-1.0 %] 0.1 % (10/13/15 4:35 PM) Neutrophils [51-75 %] 46 % *LOW* (10/13/15 4:35 PM) Lymphocytes [20-46 %] 41 % (10/13/15 4:35 PM) Monocytes [4-11 %] 8 % (10/13/15 4:35 PM) Eosinophils [0-4 %] 4 % (10/13/15 4:35 PM) Basophils [0-2 %] 0 % (10/13/15 4:35 PM) Neutro Absolute [1.90-7.00 10*3] 3.32 10*3 (10/13/15 4:35 PM) Lymph Absolute [0.80-3.30 10*3] 2.96 10*3 (10/13/15 4:35 PM) Blount Absolute [0.30-1.00 10*3] 0.59 10*3 (10/13/15 4:35 PM) Eos Absolute [0.00-0.50 10*3] 0.28 10*3 (10/13/15 4:35 PM) Baso Absolute [0.00-0.20 10*3] 0.03 10*3 (10/13/15 4:35 PM) Chemistry Most recent to oldest [Reference Range]: 1 Sodium Lvl [135-144 mEq/L] 138 mEq/L (10/13/15 4:35 PM) Potassium Lvl [3.5-5.2 mEq/L] 4.5 mEq/L (10/13/15 4:35 PM) Chloride [99-111 mEq/L] 104 mEq/L (10/13/15 4:35 PM) CO2 [23-31 mEq/L] 25 mEq/L (10/13/15 4:35 PM) AGAP [3-20] 9 (10/13/15 4:35 PM) BUN [8-26 mg/dL] 15 mg/dL (10/13/15 4:35 PM) Glucose Lvl [70-99 mg/dL] 86 mg/dL (10/13/15 4:35 PM) Creatinine Lvl [0.72-1.25 mg/dL] 1.19 mg/dL (10/13/15 4:35 PM) eGFR [>60 mL/min] >60 mL/min 1 (10/13/15 4:35 PM) Calcium Lvl [8.9-10.5 mg/dL] 9.6 mg/dL (10/13/15 4:35 PM) Albumin Lvl [3.4-4.8 gm/dL] 4.6 gm/dL (10/13/15 4:35 PM) Total Protein [6.0-7.6 gm/dL] 7.4 gm/dL 2 (10/13/15 4:35 PM) Globulin [1.8-4.0 gm/dL] 2.8 gm/dL (10/13/15 4:35 PM) ALT [0-55 U/L] 40 U/L (10/13/15 4:35 PM) AST [5-34 U/L] 21 U/L (10/13/15 4:35 PM) Alk Phos [40-150 U/L] 71 U/L (10/13/15 4:35 PM) Bili Total [0.2-1.2 mg/dL] 0.3 mg/dL (10/13/15 4:35 PM) Vitamin B12 Lvl [213-816 pg/mL] >2000 pg/mL *HI* (10/13/15 4:35 PM) 1Result Comment: Multiply eGFR results by 1.21 for race.2Result Comment: Please note new reference range for adult Protein.Urinalysis Most recent to oldest [Reference Range]: 1 UA Color Yellow (10/13/15 4:00 PM) UA Appear Clear (10/13/15 4:00 PM) UA pH [5.0-8.0] 6.0 (10/13/15 4:00 PM) UA Leuk Est [Negative] Negative (10/13/15 4:00 PM) UA Nitrite [Negative] Negative (10/13/15 4:00 PM) UA Protein [Negative] Negative (10/13/15 4:00 PM) UA Glucose [Negative] Negative (10/13/15 4:00 PM) UA Ketones [Negative] Negative (10/13/15 4:00 PM) UA Urobilinogen [<=1.0 mg/dL] 1.0 mg/dL (10/13/15 4:00 PM) UA Bili [Negative] Negative (10/13/15 4:00 PM) UA Blood [Negative] Negative (10/13/15 4:00 PM) UA Spec Grav [1.003-1.030] 1.020 (10/13/15 4:00 PM) Type Clean Catch (10/13/15 4:00 PM) Immunizations No data available for this section Procedures Procedure Date Related Diagnosis Body Site Colonoscopic polypectomy1 10/17/13 Esophagogastroduodenoscopy and biopsy2 10/17/13 Colonoscopy3 05/11/03 Esophagogastroduodenoscopy and biopsy4 05/11/03 1Tubular adenoma 1, repeat in 5 [id number] chronic inflammation distal esophagus, no Grace's, no cancer, continue [id number] antritis, minimal grace's metaplasia, distal esophagitis Social History Social History Type Response Smoking Status Former smoker; Type: Cigarettes Assessment and Plan Extracted from: Title: Ambulatory Patient Education Author: Miesha Wallis PA-C Date: Family Medicine Fatigue Fatigue is feeling tired all of the time, a lack of energy, or a lack of motivation. Occasional or mild fatigue is often a normal response to activity or life in general. However, long-lasting (chronic) or extreme fatigue may indicate an underlying medical condition. HOME CARE INSTRUCTIONS Watch your fatigue for any changes. The following actions may help to lessen any discomfort you are feeling: Talk to your health care provider about how much sleep you need each night. Try to get the required amount every night. Take medicines only as directed by your health care provider. Eat a healthy and nutritious diet. Ask your health care provider if you need help changing your diet. Drink enough fluid to keep your urine clear or pale yellow. Practice ways of relaxing, such as yoga, meditation, massage therapy, or acupuncture. Exercise regularly. Change situations that cause you stress. Try to keep your work and personal routine reasonable. Do not abuse illegal drugs. Limit alcohol intake to no more than 1 drink per day for non women and 2 drinks per day for men. One drink equals 12 ounces of beer, 5 ounces of wine, or 1 ounces of hard liquor. Take a multivitamin, if directed by your health care provider. SEEK MEDICAL CARE IF: Your fatigue does not get better. You have a fever. You have unintentional weight loss or gain. You have headaches. You have difficulty: Falling asleep. Sleeping throughout the night. You feel angry, guilty, anxious, or sad. You are unable to have a bowel movement (constipation). You skin is dry. Your legs or another part of your body is swollen. SEEK IMMEDIATE MEDICAL CARE IF: You feel confused. Your vision is blurry. You feel faint or pass out. You have a severe headache. You have severe abdominal, pelvic, or back pain. You have chest pain, shortness of breath, or an irregular or fast heartbeat. You are unable to urinate or you urinate less than normal. You develop abnormal bleeding, such as bleeding from the rectum, vagina , nose, lungs, or nipples. You vomit blood. You have thoughts about harming yourself or committing suicide. You are worried that you might harm someone else. This information is not intended to replace advice given to you by your health care provider. Make sure you discuss any questions you have with your health care provider. Document Released: 12/17/2007 Document Revised: 03/12/2015 Document Reviewed: 06/23/2014 [facility] Patient Information 2016 [employer]. Urinary Frequency The number of times a normal person urinates depends upon how much liquid they take in and how much liquid they are losing. If the temperature is hot and there is high humidity, then the person will swe at more and usually breathe a little more frequently. These factors decrease the amount of frequency of urination that would be considered normal. The amount you drink is easily determined, but the amount of fluid lost is sometimes more difficult to calculate. Fluid is lost in two ways: Sensible fluid loss is usually measured by the amount of urine that you get rid of. Losses of fluid can also occur with diarrhea. Insensible fluid loss is more difficult to measure. It is caused by evaporation. Insensible loss of fluid occurs through breathing and sweating. It usually ranges from a little less than a quart to a little more than a quart of fluid a day. In normal temperatures and activity levels, the average person may urinate 4 to 7 times in a 24-hour period. Needing to urinate more often than that could indicate a problem. If one urinates 4 to 7 time s in 24 hours and has large volumes each time, that could indicate a different problem from one who urinates 4 to 7 times a day and has small volumes. The time of urinating is also important. Most urin ating should be done during the waking hours. Getting up at night to urinate frequently can indicate some problems. CAUSES The bladder is the organ in your lower abdomen that holds urine. Like a balloon , it swells some as it fills up. Your nerves sense this and tell you it is time to head for the bathroom. There are a numbe r of reasons that you might feel the need to urinate more often than usual. They include: Urinary tract infection. This is usually associated with other signs such as burning when you urinate. In men, problems with the prostate (a walnut-size gland that is located near the tube that carries urine out of your body). There are two reasons why the prostate can cause an increased frequency of urination: An enlarged prostate that does not let the bladder empty well. If the bladder only half empties when you urinate, then it only has half the capacity to fill before you have to urinate again. The nerves in the bladder become more hypersensitive with an increased size of the prostate even if the bladder empties completely. . Obesity. Excess weight is more likely to cause a problem for women than for men. Bladder stones or other bladder problems. Caffeine. Alcohol. Medications. For example, drugs that help the body get rid of extra fluid (diuretics) increase urine production. Some other medicines must be taken with lots of fluids. Muscle or nerve weakness. This might be the result of a spinal cord injury, a stroke, multiple sclerosis, or Parkinson disease. Long-standing diabetes can decrease the sensation of the bladder. This loss of sensation makes it harder to sense the bladder needs to be emptied. Over a period of years, the bladder is stretched out by constant overfilling. This weakens the bladder muscles so that the bladder does not empty well and has less capacity to fill with new urine. Interstitial cystitis (also called painful bladder syndrome). This condition develops because the tissues that line the inside of the bladder are inflamed (inflammation is the body's way of react ing to injury or infection). It causes pain and frequent urination. It occurs in women more often than in men. DIAGNOSIS To decide what might be causing your urinary frequency, your health care provider will probably: Ask about symptoms you have noticed. Ask about your overall health. This will include questions about any medications you are taking. Do a physical examination. Order some tests. These might include: A blood test to check for diabetes or other health issues that could be contributing to the problem. Urine testing. This could measure the flow of urine and the pressure on the bladder. A test of your neurological system (the brain, spinal cord, and nerves) . This is the system that senses the need to urinate. A bladder test to check whether it is emptying completely when you urinate. Cystoscopy. This test uses a thin tube with a tiny camera on it. It offers a look inside your urethra and bladder to see if there are problems. Imaging tests. You might be given a contrast dye and then asked to urinate. X-rays are taken to see how your bladder is working. TREATMENT It is important for you to be evaluated to determine if the amount or frequency that you have is unusual or abnormal. If it is found to be abnormal, the cause should be determined and this can usually b e found out easily. Depending upon the cause, treatment could include medication, stimulation of the nerves, or surgery. There are not too many things that you can do as an individual to change your urinary frequency. It is important that you balance the amount of fluid intake needed to compensate for your activity and th e temperature. Medical problems will be diagnosed and taken care of by your physician. There is no particular bladder training such as Kegel exercises that you can do to help urinary frequency. This is an exercise that is usually recommended for people who have leaking of urine when they laugh, cough, or sneeze. HOME CARE INSTRUCTIONS Take any medications your health care provider prescribed or suggested. Follow the directions carefully. Practice any lifestyle changes that are recommended. These might include : Drinking less fluid or drinking at different times of the day. If you need to urinate often during the night, for example, you may need to stop drinking fluids early in the evening. Cutting down on caffeine or alcohol. They both can make you need to urinate more often than normal. Caffeine is found in coffee, tea, and sodas. Losing weight, if that is recommended. Keep a journal or a log. You might be asked to record how much you drink and when and where you feel the need to urinate. This will also help evaluate how well the treatment provided by your physician is working. SEEK MEDICAL CARE IF: Your need to urinate often gets worse. You feel increased pain or irritation when you urinate. You notice blood in your urine. You have questions about any medications that your health care provider recommended. You notice blood, pus, or swelling at the site of any test or treatment procedure. You develop a fever of more than 100.5F (38.1C). SEEK IMMEDIATE MEDICAL CARE IF: You develop a fever of more than 102.0F (38.9C). This information is not intended to replace advice given to you by your health care provider. Make sure you discuss any questions you have with your health care provider. Document Released: 12/16/2009 Document Revised: 03/12/2015 Document Reviewed: 12/16/2009 [facility] Patient Information 2016 [employer]. No follow up information was provided. Extracted from: Title: Office Visit Note- Urinary Author: Miesha Wallis PA-C Date: 12/18 issues, fatigue Assessment/Plan Fatigue Offered to check some basic lab today. Usually has this done at OR. She would like to check them today. Again, she requests Vit B12 level. Ordered: CBC w/ Differential Comprehensive Metabolic Panel Office Visit Level 4 Est 95985 Vitamin B12 Level Frequency of micturition, Frequent urination UA was normal. Advised to drink plenty of fluidsandmonitor sx.Can set up with different urologist or OR urology. Ordered: Office Visit Level 4 Est 36711 Unstable balance Will check some basic lab today, but pt's states that if this is just part of his dementia or this requires larger work up, she would like to have it done at the OR. Ordered: Comprehensive Metabolic Panel Office Visit Level 4 Est 04748 Vitamin B12 Level
--- OUTSIDE RECORDS SUMMARY | 2017-06-13 12:36 | External Medical Summary | Referral Summary ---
:1950 Author Organization [facility], [facility] Address [address] [place] [address] [place] [id number] Care Team Providers Name Role Phone Jaylen Burrows Primary Care Physician Encounter VC Date(s): 10/23/14 - 10/23/14 [facility] [address] [place] [address] [place] [phone] [place] Discharge Diagnosis: Benign [...] nodule(Confirmed) Active Current smoker(Confirmed) Active Wheezing(Confirmed) Active [id number] Allergies, Adverse Reactions, Alerts No Known Allergies Medications aspirin 81 mg, Oral, Daily, 0 Refill(s) Start Date: 09/26/13 Status: Orderedescitalopram 10 mg oral tablet 0.5 tabs, Oral, Daily[facility] Refill(s) Start Date: 05/22/14 Status: OrderedpredniSONE 20 mg oral tablet 20 mg 1 tabs, Oral, Daily, X 5 days, # 5 tabs, 0 Refill(s), Pharmacy: [facility] #[id number], 1 tabs Oral Daily,x5 days Start Date: 01/07/15 Stop Date: 01/12/15 Status: OrderedPriLOSEC 40 mg oral delayed release capsule See Instructions, TAKE ONE CAPSULE BY MOUTH ONCE A DAY, # 30 caps, 5 Refill(s), eRx: [facility] #[id number], TAKE ONE CAPSULE BY MOUTH ONCE A DAY Start Date: 11/02/14 Status: Orderedsimvastatin 40 mg oral tablet See Instructions, TAKE ONE TABLET BY MOUTH EVERY NIGHT AT BEDTIME, # 90 tabs, eRx: [facility] #[id number], TAKE ONE TABLET BY MOUTH EVERY NIGHT [...] 05/11/03 1Tubular adenoma 1, repeat in 5 [id number] chronic inflammation distal esophagus, no Grace's, no cancer, continue [id number] antritis, minimal grace's metaplasia, distal esophagitis Social History Social History Type Response Smoking Status Current every day smoker; Type: Cigarettes Assessment and Plan Extracted from: Title: Ambulatory Patient Education Author: Natalio Jimenez JR, MD Date: Follow Up With: Where: When: Jaylen Bolanosfemi [address] [place] [address] Drive; [place] [address] Business (1) Within 3 to 5 days Comments: Follow Up With: Where: When: Natalio Barbara [address] [place] [address] Drive; [place] [address] Business (1) In 1 year 10/24/2015 Comments: Extracted from: Title: Office Visit Note Author: Natalio Jimenez JR, MD Date: 10/23/14 Assessment/Plan Benign prostatic hyperplasia patient not taking any prostate medication at present. He had a PSA done today I don't have that report yet Ordered: Office Visit Level 3 Est 82073 Prostate nodule I could not feel any prostatic nodule on this prostate examination today. Recheck in my office in one year PSA a week before next visit or to come and see me sooner if having troubles with urination
--- OUTSIDE RECORDS SUMMARY | 2017-06-13 12:36 | External Medical Summary | Referral Summary ---
:1950 Author Organization [facility] Address [address] [place] [address] [place] [phone] Care Team Providers Name Role Phone RadhasusanJaylen kahn Primary Care Physician Encounter VC Date(s): 10/23/14 - 10/23/14 [facility] [address] [place] [address] [place] [phone] [place] Discharge Diagnosis: Benign [...] nodule(Confirmed) Active Current smoker(Confirmed) Active Wheezing(Confirmed) Active [id number] Allergies, Adverse Reactions, Alerts No Known Allergies Medications aspirin 81 mg, Oral, Daily, 0 Refill(s) Start Date: 09/26/13 Status: OrderedDulcolax Stool Softener mg, Oral, Daily, 0 Refill(s) Start Date: 03/26/15 Status: OrderedPriLOSEC 40 mg oral delayed release capsule See Instructions, TAKE ONE CAPSULE BY MOUTH ONCE A DAY, # 30 caps, 5 Refill(s), eRx: [facility] #[id number], TAKE ONE CAPSULE BY MOUTH ONCE A DAY Start Date: 11/02/14 Status: Orderedsertraline Oral, Daily, 0 Refill(s) Start Date: 04/14/15 Status: Orderedsimvastatin 40 mg oral tablet See Instructions, TAKE ONE TABLET BY MOUTH EVERY NIGHT AT BEDTIME, # 90 tabs, eRx: [facility] #[id number], TAKE ONE TABLET BY MOUTH EVERY NIGHT [...] 05/11/03 1Tubular adenoma 1, repeat in 5 [id number] chronic inflammation distal esophagus, no Grace's, no cancer, continue [id number] antritis, minimal grace's metaplasia, distal esophagitis Social History Social History Type Response Smoking Status Former smoker; Type: Cigarettes Assessment and Plan Extracted from: Title: Ambulatory Patient Education Author: Natalio Jimenez JR, MD Date: Follow Up With: Where: When: [address]; Via [facility] [place] [address] [employer] (1) Within 3 to 5 days Comments: Follow Up With: Where: When: Natalio Jimenez [address] [place] [address] Drive; Via [facility] [place] [address] [facility] ([employer] In 1 year 10/24/2015 Comments: Extracted from: Title: Office Visit Note Author: Natalio Jimenez JR, MD Date: 10/23/14 Assessment/Plan Benign prostatic hyperplasia patient not taking any prostate medication at present. He had a PSA done today I don't have that report yet Ordered: Office Visit Level 3 Est [id number] Prostate nodule I could not feel any prostatic nodule on this prostate examination today. Recheck in my office in one year PSA a week before next visit or to come and see me sooner if having troubles with urination
--- OUTSIDE RECORDS SUMMARY | 2017-06-13 12:36 | External Medical Summary | Referral Summary ---
:1950 Author Organization [facility] Address [address] [place] [address] [place] [phone] Care Team Providers Name Role Phone RadhasusanJaylen akhn Primary Care Physician Encounter VC Date(s): 10/23/14 - 10/23/14 [facility] [address] [place] [address] [place] [phone] [place] Discharge Diagnosis: Benign [...] nodule(Confirmed) Active Current smoker(Confirmed) Active Wheezing(Confirmed) Active [id number] Allergies, Adverse Reactions, Alerts No Known Allergies Medications aspirin 81 mg, Oral, Daily, 0 Refill(s) Start Date: 09/26/13 Status: Orderedescitalopram 10 mg oral tablet 0.5 tabs, Oral, Daily[facility], [facility] Refill(s) Start Date: 05/22/14 Status: OrderedpredniSONE 20 mg oral tablet 20 mg 1 tabs, Oral, Daily, X 5 days, # 5 tabs, 0 Refill(s), Pharmacy: [facility] #[id number], 1 tabs Oral Daily,x5 days Start Date: 01/07/15 Stop Date: 01/12/15 Status: OrderedPriLOSEC 40 mg oral delayed release capsule See Instructions, TAKE ONE CAPSULE BY MOUTH ONCE A DAY, # 30 caps, 5 Refill(s), eRx: [facility] #[id number], TAKE ONE CAPSULE BY MOUTH ONCE A DAY Start Date: 11/02/14 Status: Orderedsimvastatin 40 mg oral tablet See Instructions, TAKE ONE TABLET BY MOUTH EVERY NIGHT AT BEDTIME, # 90 tabs, eRx: [facility] #[id number], TAKE ONE TABLET BY MOUTH EVERY NIGHT [...] 05/11/03 1Tubular adenoma 1, repeat in 5 [id number] chronic inflammation distal esophagus, no Grace's, no cancer, continue [id number] antritis, minimal grace's metaplasia, distal esophagitis Social History Social History Type Response Smoking Status Current every day smoker; Type: Cigarettes Assessment and Plan Extracted from: Title: Ambulatory Patient Education Author: Natalio Jimenez JR, MD Date: Follow Up With: Where: When: Jaylen Bolanosfemi [address] [place] [address] Drive; [place] [address] Business (1) Within 3 to 5 days Comments: Follow Up With: Where: When: Natalio Barbraa [address] [place] [address] Drive; [place] [address] Business (1) In 1 year 10/24/2015 Comments: Extracted from: Title: Office Visit Note Author: Natalio Jimenez JR, MD Date: 10/23/14 Assessment/Plan Benign prostatic hyperplasia patient not taking any prostate medication at present. He had a PSA done today I don't have that report yet Ordered: Office Visit Level 3 Est 92124 Prostate nodule I could not feel any prostatic nodule on this prostate examination today. Recheck in my office in one year PSA a week before next visit or to come and see me sooner if having troubles with urination
--- OUTSIDE RECORDS SUMMARY | 2017-06-13 12:37 | External Medical Summary | Continuity of Care Document ---
:1950 Author Organization [facility] Allergies Active Description Code Type Severity Reaction Onset Reported/ Identified Relationship Clinical to Patient Status Yes No Known NKMA N/A N/A 08/13/2013 Allergies Yes No Known No Drug Unknown N/A 06/25/2015 Allergies Known Aller Aller gy gies Yes No Known Aller Unknown N/A 11/04/2015 Allergies gy Yes No Known No Aller N/A N/A 11/04/2015 Allergies Known gy Aller gies Medications Medication Packaging Start Date Stop Date Route Dosage Sig 1 tabs 08/13/2013 Oral 10 mg 1 loratadine(Clarit 4 tabs, Oral, in 10 mg oral Daily, 30 tablet) tabs 1 tabs 08/13/2013 Oral 40 mg 1 simvastatin(simva 4 tabs, Oral, statin 40 mg oral Bedtime (once tablet) a day), 30 tabs 1 tabs 08/27/2013 Oral 1 carbidopa-levodop 4 tabs, Oral, a(carbidopa-levod TID, 90 tabs opa 25 mg-100 mg oral tablet) 09/26/2013 Oral 81 mg aspirin(aspirin) 81 mg, Oral, Daily 10/30/2013 Oral omeprazole(PriLOS 4 Oral, Daily EC) 1 tabs 01/02/2014 Oral 40 mg 1 simvastatin(simva 4 tabs, Oral, statin 40 mg oral Bedtime (once tablet) a day), 90 tabs 1 caps 01/02/2014 Oral 40 mg 1 omeprazole(PriLOS 5 caps, Oral, EC 40 mg oral Daily, 90 delayed release caps capsule) 1 tabs 01/02/2014 Oral 40 mg 1 simvastatin(simva 5 tabs, Oral, statin 40 mg oral Bedtime (once tablet) a day), 90 tabs 1 packets 02/06/2014 Oral 1 azithromycin(Zith 4 packets, romax Z-Ash 250 Oral, Daily, mg oral tablet) as directed on package labeling, 6 tabs 5 mL 02/06/2014 Oral 5 promethazine-code 4 mL, Oral, ine(promethazine- q4hr, S. codeine 6.25 dillons, 120 mg-10 mg/5 mL mL, PRN: as oral syrup) needed for cough 5 mL 04/06/2014 Oral 5 promethazine-code 5 mL, Oral, ine(promethazine- q4hr, S. codeine 6.25 Dillons, 120 mg-10 mg/5 mL mL, PRN: as oral syrup) needed for cough 0.5 tabs 05/22/2014 Oral 5 mg escitalopram(esci 6 0.5 tabs, talopram 10 mg Oral, Daily, oral tablet) got from [place] 10/05/2014 simvastatin(simva 5 See statin 40 mg oral Instructions, tablet) TAKE ONE TABLET BY MOUTH EVERY NIGHT AT BEDTIME, 90 tabs 11/02/2014 omeprazole(PriLOS 6 See EC 40 mg oral Instructions, delayed release TAKE ONE capsule) CAPSULE BY MOUTH ONCE A DAY, 30 caps, 5 Refill(s) 1 packets 01/07/2015 Oral 1 azithromycin(Zith 5 packets, romax Z-Ash 250 Oral, Once, mg oral tablet) as directed on package labeling, 6 tabs, 0 Refill(s) 1 tabs 01/07/2015 Oral 20 mg predniSONE(predni 5 20 mg=1 tabs, SONE 20 mg oral Oral, Daily, tablet) for 5 days, 5 tabs, 0 Refill(s) 03/26/2015 Oral mg docusate(Dulcolax mg, Oral, Stool Softener) Daily, 0 Refill(s) 04/14/2015 sertraline(sertra See line) Instructions, Oral Daily 1.25 ML DAILY, 0 Refill(s) 1 caps 10/13/2015 Oral 0.4 mg tamsulosin(tamsul 0.4 mg=1 osin 0.4 mg oral caps, Oral, capsule) Daily, 30 caps, 0 Refill(s) 11/04/2015 PO 20 mg Omeprazole DAILY Senna 03/04/2016 PO 8.6 mg Lax QOD 03/04/2016 PO 80 mg Simvastatin HS Problems Date Dx Attending Type Code Diagnosis Diagnosed By Coded 10/13/2015 Bimal, Final R26.89 Other abnormalities Miesha Godfrey of gait and mobility 10/13/2015 Bimal, Final R53.83 Other fatigue Miesha Godfrey 10/13/2015 Bimal, Final R35.0 Frequency of Miesha Godfrey micturition Procedures Code Description [place] [address] Office or 10/13/2015 other outpatient visit for the evaluation and management of an established patient, which requires at least 2 of these 3 huston components: A detailed history; A detailed examination; Medical d Results Test Result Range CBC W/DIFF - 06/24/15 23:22 BASOPHIL # 0.1 k/cumm 0.0-0.2 BASOPHIL % 1 % 0-1 EOSINOPHIL # 0.3 k/cumm 0.1-0.5 EOSINOPHIL % 4 % 2-4 GRANULOCYTE # 3.3 k/cumm 2.0-9.0 GRANULOCYTE % 41 % 50-75 LYMPHOCYTE # 3.5 k/cumm 1.0-4.0 LYMPHOCYTE % 43 % 20-30 MEAN CELL HGB 32.4 pg 27.0-33.0 MEAN CELL HGB CONCENTRATION 34.5 g/dL 32.0-37.0 MEAN CELL VOLUME 94.0 fl 80.0-100.0 MONOCYTE # 0.9 k/cumm 0.1-1.0 MONOCYTE % 11 % 4-6 RED BLOOD CELL 4.35 m/cumm 4.00-6.00 RED CELL DISTRIBUTION WIDTH 13.6 % 11.0-15.6 WHITE BLOOD CELL 8.0 k/cumm 5.0-10.0 HEMOGLOBIN 14.1 gm/dL 14.0-18.0 HEMATOCRIT 40.9 % 40.0-54.0 PLATELET COUNT 224 k/cumm 150-400 METABOLIC PANEL, BASIC - 06/24/15 23:22 POTASSIUM 4.1 mmol/L 3.5-5.3 EST GFR (MDRD) 55 mL/min > 59 ANION GAP 10 mmol/L 5-15 GLUCOSE 90 mg/dL 70-99 CALCIUM 9.0 mg/dL 8.5-10.1 BLOOD UREA NITROGEN 17 mg/dL 7-20 CREATININE 1.3 mg/dL 0.7-1.3 SODIUM 139 mmol/L 135-148 CHLORIDE 104 mmol/L 98-110 CARBON DIOXIDE 25 mmol/L 21-32 Urinalysis with reflex microscopic - 10/13/15 16:00 Appearance Clear NA Bilirubin Negative NA Negative Blood Negative NA Negative Color Yellow NA Glucose, Urine Negative NA Negative Ketones Negative NA Negative Leukocyte Esterase Negative NA Negative Nitrites Negative NA Negative pH 6.0 NA 5.0-8.0 Protein Negative NA Negative Specific [place] 1.020 NA 1.003-1.030 UA Collection type Clean Catch NA Urobilinogen 1.0 mg/dL <=1.0 L600.0100 - 03/04/16 19:10 SPECIMEN TYPE, URINE VOIDED-NOT CC-MIDSTR COLOR,URINE YELLOW YELLOW TURBIDITY, URINE CLEAR CLEAR SPECIFIC GRAVITY,URINE 1.015 1.015-1.025 PH, URINE - DIPSTICK 6.5 5.0-8.0 LEUKOCYTE ESTERASE ,URINE NEGATIVE NEGATIVE NITRITE,URINE NEGATIVE NEGATIVE PROTEIN,URINE - DIPSTICK NEGATIVE NEGATIVE GLUCOSE, URINE - DIPSTICK NEGATIVE NEGATIVE KETONES,URINE - DIPSTICK NEGATIVE NEGATIVE UROBILINOGEN,URINE 1.0 EU/DL NORMAL BILIRUBIN,URINE - DIPSTICK NEGATIVE NEGATIVE BLOOD, URINE NEGATIVE NEGATIVE URINE MICRO MICROSCOPIC NOT IND. L100.0050 - 03/04/16 19:10 WBC - WHITE BLOOD COUNT 6.5 T/MM3 4.5-11.0 RED BLOOD COUNT 4.79 M/MM3 4.50-5.90 HGB - HEMOGLOBIN 14.9 GM/DL 13.5-17.5 HCT - HEMATOCRIT 45.0 % 41-53 MEAN CORPUSCULAR VOLUME 93.9 UM3 80-100 MEAN CORPUSCULAR HGB 31.1 UUG 26-34 MEAN CORPUSCULAR HGB CONC(MCHC 33.1 GM/DL 31-37 RDW STANDARD DEVIATION 45.3 FL 36.9-50.2 PLT - PLATELET COUNT 231 T/MM3 130-400 MEAN PLATELET VOLUME 10.8 UM3 9.4-12.4 NEUTROPHILS % (AUTO) 44.0 % 33-66 LYMPHOCYTES % (AUTO) 43.0 % 23-45 MONOCYTES % (AUTO) 8.7 % 0-9.0 EOSINOPHILS % (AUTO) 3.7 % 0-4 BASOPHILS % (AUTO) 0.3 % 0-2 IMMATURE GRANULOCYTE % (AUTO) 0.3 % 0.0-0.5 NEUTROPHILS # (AUTO) 2.9 T/MM3 1.8-7.7 LYMPHOCYTES # (AUTO) 2.8 T/MM3 1-4.8 MONOCYTES # (AUTO) 0.6 T/MM3 0-0.8 EOSINOPHILS # (AUTO) 0.2 T/MM3 0-0.5 BASOPHILS # (AUTO) 0.0 T/MM3 0-0.2 IMMATURE GRANULOCYTE # (AUTO) 0.02 T/MM3 0.00-0.03 L200.0020 - 03/04/16 19:10 ICTERUS < 2 0-7 HEMOLYSIS < 15 0-25 TURBIDITY < 20 0-20 SODIUM 142 MEQ/L 134-144 POTASSIUM 4.3 MEQ/L 3.6-5 CHLORIDE 103 MEQ/L 98-107 CO2 - CARBON DIOXIDE 28 MEQ/L 22-30 ANION GAP 11 MEQ/L 5-15 BLOOD UREA NITROGEN 16.0 MG/DL 9-20 CREATININE 1.4 MG/DL 0.8-1.5 BUN/CREATININE RATIO 11 RATIO 6-26 GLOMERULAR FILTRATION RATE 51 GLUCOSE 92 MG/DL 75-110 OSMOLALITY,CALCULATED 274 MOSM/KG 261-280 CALCIUM 9.4 MG/DL 8.4-10.2 BILIRUBIN,TOTAL 0.40 MG/DL 0.20-1.30 ALKALINE PHOSPHATASE 63 U/L 38-126 TOTAL PROTEIN 7.6 G/DL 6.3-8.2 ALBUMIN 4.3 G/DL 3.5-5.0 GLOBULIN 3.3 G/DL 2.4-3.6 ALBUMIN/GLOBULIN RATIO 1.3 RATIO 1.1-2.2 AST (SGOT) 25 U/L 17-59 ALT (SGPT) 46 U/L 21-72 Encounters ACCT No. Visit Discharge Status Pt. Type Provider Facility Loc./Unit Complaint Date/Time [id number] 04/18/2013 04/18/2013 CLS Outpatie 13:40:00 23:59:59 nt [id number] 03/31/2013 03/31/2013 CLS Outpatie 13:23:00 23:59:59 nt [id number] 06/24/2015 06/25/2015 DIS Outpatie CITLALLI Burrell7TS 2833 23:15:00 16:50:00 nt [facility] [id number] 03/04/2016 03/04/2016 DIS Emergenc REYNOSO [place] ED 9184 18:22:00 20:36:00 y [facility] [id number] 02/17/2016 02/17/2016 DIS Emergenc LIDIA LEYVA, [place] 6273 20:56:00 21:37:00 y [facility] [id number] 11/04/2015 11/04/2015 DIS Emergenc SOLANGE [place] ED 5707 16:11:00 17:42:00 y [facility] [id number] 07/19/2015 07/19/2015 DIS Emergenc TRISH [place] 4628 16:02:00 18:32:00 y [facility]UAN ALBERTO [facility] [id number] 06/13/2017 Document 0552 11:53:00 Registra tion [id number] 08/12/2015 Document 1735 08:36:00 Registra tion [id number] 10/13/2015 10/13/2015 DIS Outpatie [place], Via [facility] New FM TCPA POSS UTI [id number] 15:33:00 23:59:00 nt Miesha Godfrey [facility] [id number] 04/14/2015 04/14/2015 DIS Outpatie Komarek, Via [facility] New IC RED WATERY 1671 17:29:00 23:59:00 nt Sam E [facility] [id number] 04/14/2015 04/14/2015 DIS Outpatie Komarek, Via [facility] New FM RED / WATER 1667 17:24:00 23:59:00 nt [facility] E [facility] [id number] 03/26/2015 03/26/2015 DIS Outpatie Luinstra, Via [facility] New FM Request for [id number] 11:21:00 23:59:00 nt Jaylen [facility] [id number] 01/07/2015 01/07/2015 DIS Outpatie Luinstra, Via [facility] New FM cough 0247 15:41:00 23:59:00 nt Jaylen Samuels [facility] [id number] 10/23/2014 10/23/2014 DIS Outpatie [place], Via [facility] New 1yr recheck 6085 13:47:00 23:59:00 nt Natalio Wood [facility] [id number] 05/22/2014 05/22/2014 DIS Outpatie Luinstra, Via [facility] New FM Incontinence 0262 11:00:00 23:59:00 nt Jaylen Samuels [facility] [id number] 04/06/2014 04/06/2014 DIS Outpatie Luinstra, Via [facility] New FM cough/inconti 2071 15:58:00 23:59:00 nt Jaylen Samuels [facility] [id number] 02/06/2014 02/06/2014 DIS Outpatie Luinstra, Via [facility] New FM cold symptoms 8127 15:12:00 23:59:00 nt Jaylen Samuels [facility] [id number] 10/14/2015 Document [id number] 05:16:50 Registra tion [id number]/15/2015 Document [id number] 05:16:53 Registra tion [id number]/27/2015 Document [id number] 05:17:18 Registra tion 2015010801/08/2015 Document [id number] 05:17:29 Registra tion 2014122312/23/2014 Document [id number] 13:44:56 Registra tion 2014122312/23/2014 Document [id number] 13:21:37 Registra tion 2014122312/23/2014 Document [id number] 11:42:49 Registra tion 2014122312/23/2014 Document [id number] 11:16:41 Registra tion 2014122312/23/2014 Document [id number] 10:40:38 Registra tion 2014122312/23/2014 Document [id number] 10:33:06 Registra tion 2014122312/23/2014 Document [id number] 10:17:13 Registra tion 2014122312/23/2014 Document [id number] 09:38:29 Registra tion 2014122312/23/2014 Document [id number] 09:20:31 Registra tion
--- OUTSIDE RECORDS SUMMARY | 2017-06-13 12:37 | External Medical Summary | Referral Summary ---
:1950 Author Organization [facility] Address [address] [place] [address] [place] [phone] Care Team Providers Name Role Phone RadhasusanJaylen kahn Primary Care Physician Encounter VC Date(s): 10/23/14 - 10/23/14 [facility] [address] [place] [address] [place] [phone] [place] Discharge Diagnosis: Benign [...] nodule(Confirmed) Active Current smoker(Confirmed) Active Wheezing(Confirmed) Active [id number] Allergies, Adverse Reactions, Alerts No Known Allergies Medications aspirin 81 mg, Oral, Daily, 0 Refill(s) Start Date: 09/26/13 Status: Orderedescitalopram 10 mg oral tablet 0.5 tabs, Oral, Daily[facility] Refill(s) Start Date: 05/22/14 Status: OrderedpredniSONE 20 mg oral tablet 20 mg 1 tabs, Oral, Daily, X 5 days, # 5 tabs, 0 Refill(s), Pharmacy: [facility] #[id number], 1 tabs Oral Daily,x5 days Start Date: 01/07/15 Stop Date: 01/12/15 Status: OrderedPriLOSEC 40 mg oral delayed release capsule See Instructions, TAKE ONE CAPSULE BY MOUTH ONCE A DAY, # 30 caps, 5 Refill(s), eRx: [facility] #[id number], TAKE ONE CAPSULE BY MOUTH ONCE A DAY Start Date: 11/02/14 Status: Orderedsimvastatin 40 mg oral tablet See Instructions, TAKE ONE TABLET BY MOUTH EVERY NIGHT AT BEDTIME, # 90 tabs, eRx: [facility] #[id number], TAKE ONE TABLET BY MOUTH EVERY NIGHT [...] 05/11/03 1Tubular adenoma 1, repeat in 5 [id number] chronic inflammation distal esophagus, no Grace's, no cancer, continue [id number] antritis, minimal grace's metaplasia, distal esophagitis Social History Social History Type Response Smoking Status Current every day smoker; Type: Cigarettes Assessment and Plan Extracted from: Title: Ambulatory Patient Education Author: Natalio Jimenez JR, MD Date: Follow Up With: Where: When: Jaylen Bolanosfemi [address] [place] [address] Drive; [place] [address] Business (1) Within 3 to 5 days Comments: Follow Up With: Where: When: Natalio Barbara [address] [place] [address] Drive; [place] [address] Business (1) In 1 year 10/24/2015 Comments: Extracted from: Title: Office Visit Note Author: Natalio Jimenez JR, MD Date: 10/23/14 Assessment/Plan Benign prostatic hyperplasia patient not taking any prostate medication at present. He had a PSA done today I don't have that report yet Ordered: Office Visit Level 3 Est 26718 Prostate nodule I could not feel any prostatic nodule on this prostate examination today. Recheck in my office in one year PSA a week before next visit or to come and see me sooner if having troubles with urination
--- NOTE | 2017-06-13 12:42 | Emergency Department Report ---
Fever HPI - General Chief Complaint: Fever Stated Complaint: fever,vomiting Source: family Mode of arrival: wheelchair Limitations: altered mental status - History of Present Illness HPI Narrative: Pt presents with and daughter. 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 He does live at home and today his noted that this am he just "didn't seem his normal self". states he did not eat breakfast as well as usual, he spilled his water, and seemed weaker than normal. She took his temperature and had a result of 99.3. Home health came to pts home and had a reading of over 100. gave pt some Tylenol. Pt had 2 episodes of "projectile" vomiting. reports pt was constipated last week but was able to have a BM 2 days ago after some prune juice and Miralax. She has also noted a weak cough for about a week. MD complaint: fever, weakness Onset (ago): hour(s) Associated symptoms: vomiting - Related Data Home Medications Medication Instructions Recorded Confirmed Omeprazole 40 mg PO DAILY #0 11/04/15 06/13/17 Simvastatin 40 mg PO HS #0 03/04/16 06/13/17 Acetaminophen [Children's Tylenol] 15 ml PO PRN PRN 06/13/17 06/13/17 Aspirin [Ecotrin] 81 mg PO DAILY 06/13/17 06/13/17 Sennosides/Docusate Sodium 1 each PO DAILY 06/13/17 06/13/17 [Senna-S Tablet] Sertraline HCl [Zoloft] 1.25 ml PO DAILY 06/13/17 06/13/17 Tamsulosin [Flomax] 0.4 mg PO HS 06/13/17 06/13/17 Allergies Allergy/AdvReac Type Severity Reaction Status Date / Time No Known Allergies Allergy Verified 06/13/17 12:37 Review of Systems All systems: reviewed and negative except as stated (limited 2/2 info from family) Constitutional: Reports: as per HPI Respiratory: Reports: as per HPI Gastrointestinal: Reports: as per HPI Musculoskeletal: Reports: as per HPI Neurological: Reports: as per HPI [facility] Patient Stated Medical History Dementia Yes: severe early onset frontotemporal dementia Gastroesophageal Reflux Yes Disease Hx Benign Prostatic Yes Hyperplasia Osteoarthritis Yes Physical Exam - Limitations Limitations: altered mental status - General General appearance: alert, in no apparent distress - Normal Exams: Head:: Normocephalic without trauma Eyes:: Pupils are PERRLA w/ EOMI Chest/Respirations:: Clear all liao (difficult to ascultate pt unable to follow commands for deep inspiration) Cardiovascular:: Regular rate and rhythm, without murmur or gallop, Pulses 2+ all extremities, capillary refill, <2 seconds all extremities (1+ lopez pedal edema) Abdomen:: Bowel sounds positive, soft, non-tender (slightly distended, question hernia) Musculoskeletal:: No tenderness, or deformity noted, good range of motion (for pt baseline) Integumentary:: No rashes Neurological:: Patient is alert (non verbal, pt will smile appropriatly for baseline) Psychiatric:: Patient exhibits, appropriate attention, emotion and affect Course Vital Signs Pulse Rate 93 06/13/17 11:58 Blood Pressure 113/70 06/13/17 11:58 Pulse Oximetry 95 06/13/17 11:58 Temperature 100.9 F H 06/13/17 12:11 Pulse Rate 92 06/13/17 12:11 Respiratory Rate 24 06/13/17 12:11 Blood Pressure 110/68 06/13/17 12:11 Pulse Oximetry 96 06/13/17 12:11 Fever - MDM Narrative Medical decision making narrative: Labs and radiology results reviewed. Antibiotics and IVF initiated. Findings and need to admit discussed with family who verbalize understanding. [facility] Notification of need for admission made to the occupational health nursing director of the day who cleared pt for admission to [facility] [place] Andino notified of need for admission and agrees to accept. Family agreeable to plan. - Differential Diagnosis Likely: fever of unknown origin, gastroenteritis, community acquired pneumonia, viral infection, sepsis - Lab Data Attestation: I reviewed the patient's lab results. Result diagrams: 06/13/17 12:00 06/13/17 12:37 Lab Results 06/13/17 06/13/17 06/13/17 Range/Units 12:00 12:37 13:48 WBC 14.6 H (4.5-11.0) T/MM3 RBC 4.85 (4.50-5.90) M/MM3 Hgb 15.2 (13.5-17.5) GM/DL Hct 46.0 (41-53) % MCV 94.8 (80-100) UM3 MCH 31.3 (26-34) UUG MCHC 33.0 (31-37) GM/DL RDW Std Deviation 45.2 (36.9-50.2) FL Plt Count 197 (130-400) T/MM3 MPV 12.1 (9.4-12.4) UM3 Immature Gran % (Auto) Not performed Neut % (Auto) Not performed Lymph % (Auto) Not performed Bennett % (Auto) Not performed Eos % (Auto) Not performed Baso % (Auto) Not performed Neut # (Auto) Not performed Lymph # (Auto) Not performed Bennett # (Auto) Not performed Eos # (Auto) Not performed Baso # (Auto) Not performed Abs Immat Gran (auto) Not performed Neutrophils % (Manual) 81.0 H (33-66) % Band Neutrophils % 6.0 (0-6) % Lymphocytes % (Manual) 8.0 L (23-45) % Monocytes % (Manual) 5.0 (0-9.0) % Neutrophils # (Manual) 11.8 H (1.8-7.7) T/MM3 Band Neutrophils # 0.9 T/MM3 Lymphocytes # (Manual) 1.2 (1-4.8) T/MM3 Monocytes # (Manual) 0.7 (0-0.8) T/MM3 RBC Morph Comment Normal Turbidity < 20 (0-20) Sodium 143 (134-144) MEQ/L Potassium 3.9 (3.6-5) MEQ/L Chloride 105 (98-107) MEQ/L Carbon Dioxide 26 (22-30) MEQ/L Anion Gap 12 (5-15) meq/L BUN 16.0 (9-20) MG/DL Creatinine 0.9 (0.8-1.5) mg/dL GFR Calculation 84 BUN/Creatinine Ratio 18 (6-26) RATIO Glucose 185 H (75-110) MG/DL Calculated Osmolality 281 H (261-280) MOSM/KG Calcium 9.6 (8.4-10.2) MG/DL Total Bilirubin 0.50 (0.20-1.30) MG/DL Icterus Index < 2 (0-7) AST 20 (17-59) U/L ALT 32 (1-50) U/L Alkaline Phosphatase 67 (38-126) U/L Total Protein 7.2 (6.3-8.2) g/dL Albumin 4.3 (3.5-5.0) g/dL Globulin 2.9 (2.4-3.6) G/DL Albumin/Globulin Ratio 1.5 (1.1-2.2) RATIO Plasma Lactate 3.0 H (0.6-2.2) MMOL/L Specimen Hemolysis < 15 (0-25) Ur Collection Type Urine, cath straight Urine Color Yellow (YELLOW) Urine Clarity Sl cloudy Urine pH 6.5 (5.0-8.0) Ur Specific [place] 1.010 L (1.015-1.025) Urine Protein 1+ A (NEGATIVE) Urine Glucose (UA) Negative (NEGATIVE) Urine Ketones Negative (NEGATIVE) Urine Occult Blood 3+ A (NEGATIVE) Urine Nitrate Positive A (NEGATIVE) Urine Bilirubin Negative (NEGATIVE) Urine Urobilinogen 2.0 (NORMAL) EU/DL Ur Leukocyte Esterase 2+ A (NEGATIVE) Urine RBC 30-50 H (0-3) /HPF Urine WBC 20-30 H (0-5) /HPF Urine WBC Clumps Few Urine Bacteria 2+ H (NEGATIVE) - Radiology Data Attestation: I reviewed the patient's radiology results. Reads per Dr Barrow Disposition Clinical Impression: Sepsis Qualifiers: Sepsis type: sepsis due to unspecified organism Qualified Code(s): A41.9 - Sepsis, unspecified organism CAP (community acquired pneumonia) Qualifiers: Laterality: right Lung location: lower lobe of lung Qualified Code(s): J18.1 - Lobar pneumonia, unspecified organism UTI (urinary tract infection) Qualifiers: Urinary tract infection type: acute cystitis Hematuria presence: with hematuria Qualified Code(s): N30.01 - Acute cystitis with hematuria Disposition: 02 To [facility] [place] Acute Care Condition: Improved Prescriptions: No Action Simvastatin 40 mg PO HS #0 Acetaminophen [Children's Tylenol] 15 ml PO PRN PRN PRN Reason: Pain Sertraline HCl [Zoloft] 1.25 ml PO DAILY Sennosides/Docusate Sodium [Senna-S Tablet] 1 each PO DAILY Aspirin [Ecotrin] 81 mg PO DAILY Omeprazole 40 mg PO DAILY #0 Tamsulosin [Flomax] 0.4 mg PO HS Referrals: Gorcos,Ramon D, MD [Physician] - Time of Disposition: 14:48 - Seen By: midlevel
[2017-06-13] MEDS ORDERED: IOHEXOL 300mg/ml 100ml INJECTION ONE (12:44)
[2017-06-13] MEDS ORDERED: SALINE FLUSH 10ml SYRINGE ONE (12:44)
[2017-06-13] MEDS ORDERED: CEFEPIME 1 GM in NS 100 ML IV ONE (13:02)
--- NOTE | 2017-06-13 13:09 | XRay Report ---
EXAM: XR chest 1V HISTORY: AMS, fever, vomiting COMPARISON: Prior examination dated 05/20/2015 FINDINGS: The lung liao are hypoventilated. The heart appears borderline enlarged which may be artifactual due to the hypoventilated state. The trachea is midline is no evidence of mediastinal widening. There are streaky/patchy opacities at the lung bases bilaterally. There is a suspected more focal acute infiltrate in the left suprahilar region superimposed in the region of the left first rib articulation with the manubrium. The costophrenic angles are clear. There is no evidence of a pneumothorax or pleural effusion. The bony thorax appears stable. There is artifact from cardiac monitoring lead wires over the chest. IMPRESSION: 1. The lung liao are hypoventilated with bibasilar streaky/patchy opacities likely reflecting atelectasis and/or early interstitial infiltrate. A more focal acute opacity suspected in the left suprahilar region. 2. The heart is borderline size likely artifactual due to the hypoventilated state. There are no overt congestive changes. .
--- NOTE | 2017-06-13 14:08 | CT Scan Report ---
EXAM: CT abdomen pelvis w con HISTORY: AMS, fever, vomiting COMPARISON: No prior studies are available for comparison TECHNIQUE: CT images were obtained of the abdomen and pelvis utilizing 99 cc of Omnipaque 300. Coronal and sagittal reconstruction imaging was utilized. The current CT scan was performed using radiation dose-reduction techniques. FINDINGS: LUNG BASES: There are bilateral lower lobe patchy areas of consolidation in the posterior aspect of both lower lobes consistent with bilateral lower lobe infiltrates. LIVER: The liver is normal size and contour showing no discrete lesions. SPLEEN: The spleen is normal size and contour showing no discrete lesions. GALLBLADDER/BILIARY: The gallbladder is normal in caliber showing no stones or wall thickening. There is no evidence of intra or extrahepatic biliary dilatation. PANCREAS: The pancreas is normal size and contour showing no obvious discrete lesions, abnormal enhancement, ductal dilatation or peripancreatic inflammatory change. ADRENAL GLANDS: The adrenal glands are not enlarged. KIDNEYS: The kidneys are symmetrical size, contour and enhancement showing no evidence of hydronephrosis, nephrocalcinosis or enhancing lesions. VASCULAR: The abdominal aorta and IVC are normal caliber. LYMPH NODES: No abdominal pelvic adenopathy there is mild to moderate scattered plaque formation in the abdominal aorta and iliac arteries. STOMACH/BOWEL LOOPS: The stomach is partially distended and is otherwise unremarkable. The bowel loops are normal course and caliber. There is no evidence of mechanical bowel obstruction or acute inflammatory bowel process. Scattered diverticula are seen along the course of the colon without evidence of diverticulitis. There is prominent retained fecal material within the colon and rectal vault. A normal appendix is visualized. URINARY BLADDER: The urinary bladder is normal size showing mild diffuse thickening of the bladder wall. There is mass effect on the base of the bladder by an enlarged prostate gland. PROSTATE: Enlarged measuring 5.4 cm appearing smoothly marginated. OSSEOUS STRUCTURES: Moderate degenerative lumbar spondylosis is evident. There is severe narrowing of the L5-S1 disc space with vacuum disc phenomenon. No acute fractures or focal destructive lesions are identified. PERITONEAL CAVITY: No free air or free fluid ABDOMINAL WALL: There is a small fat-containing periumbilical hernia. There are small bilateral fat-containing inguinal hernias. IMPRESSION: 1. Acute posterior bilateral lower lobe infiltrates. The location of bilateral lower lobe infiltrates is concerning and clinical correlation is recommended to exclude aspiration pneumonia. 2. Constipation with fecal impaction. 3. Diverticulosis coli without obvious evidence of diverticulitis. 4. No evidence of acute appendicitis. 5. Diffuse thickening of the wall the urinary bladder which is likely on the basis of hypertrophy from a letter obstruction though and cystitis is not excluded. 6. Prostatomegaly. .
[2017-06-13] MEDS ORDERED: IBUPROFEN 100 MG/5 ML ORAL LIQUID PO ONE (14:44)
[2017-06-13] MEDS ORDERED: ONDANSETRON 4 MG/2 ML INJECTION IVP PRN (15:36)
[2017-06-13] MEDS ORDERED: BISACODYL 10 MG SUPPOSITORY RECTALLY PRN (15:36)
[2017-06-13] MEDS ORDERED: ALBUTEROL/IPRATROPIUM 2.5mg-0.5mg/3ml NEB AEROSOL PRN (15:36)
[2017-06-13] MEDS: NS 1,000 ML IV SCH (17:11)
--- NOTE | 2017-06-13 17:25 | History & Physical Report ---
History of Present Illness Date: 06/13/17 Chief complaint: Altered mental status HPI: Note: history is obtained from Baljit's , Regina, and their daughter, Linda. He began having symptoms of dementia about 10 years ago and was diagnosed with frontal temporal degeneration in 2010. He is nonverbal at baseline but still smiles and recognizes family. He is able to stand up with assist of 1 using a gait belt for transfers but no longer ambulates. He has a history of dysphagia and is on a pureed diet with nectar thick liquids. Per Regina, he when he woke up this morning he wasn't as alert as usual. It took him 2 hours to eat his breakfast which was unusual. He wasn't able to hold his cup of water well, and ended up spilling it on his shirt. He didn't seem to have energy to transfer to the toilet. His right leg often doesn't work right but it was worse today. He had a fever of 101 degrees, and she gave him some Tylenol which improved his temp to 99. He had a runny nose on 06/09. When he coughs he tends to swallow the mucous back. He hasn't had any problems breathing but his home health aid thought he was coughing "a lot". He also had "projectile" vomiting today x2 both which looked bilious. He's incontinent of urine which is chronic; also his urine looks dark in the morning but nothing else has been unusual. He has a history of constipation and last BM was 06/11, no blood seen. No diarrhea. He occasionally holds his stomach but she doesn't think he's in pain. Regina called 911 and he was transferred to [facility] ED. He had a fever of 100.9 and was tachypneic with a RR of 25. WBC was elevated at Review of Systems ROS unobtainable: due to mental status - Constitutional Constitutional: Present: anorexia, fatigue, fever(s) - EEWIT Eyes: Present: requires corrective lenses Nose: Present: as per HPI Mouth/Throat: Present: changes in swallowing (chronic dysphagia) - Cardiovascular Cardiovascular: Absent: syncope, dyspnea on exertion Vascular: Present: pedal edema - Respiratory Respiratory: Present: cough - Gastrointestinal Gastrointestinal: Present: constipation, nausea, vomiting. Absent: coffee ground emesis, hematemesis, hematochezia - Genitourinary Genitourinary: Present: urinary incontinence - Musculoskeletal Musculoskeletal: Present: abnormal gait - Integumentary/Breasts Integumentary: Absent: non-healing lesions, rash, wounds - Neurological Neurological: Present: abnormal gait - Psychiatric Psychiatric: Present: behavioral changes - Hematologic/Lymphatic Hematologic/Lymphatic: Present: easy bruising Past Medical History Medical History Updates: Frontal temporal degeneration. Parkinsonian-type syndrome. Hyperlipidemia. KARRI on CPAP. Dysphagia Surgical History: Bladder polyp removed Family History Updates: Father - diabetes, at age 69 of a stroke. Mother - from lung cancer (nonsmoker) at age 86. Sister (older) - diabetes. Sister (younger) - breast cancer. Brother (older) - heart problems. Brother ( younger) - deafness. Sister (younger) - healthy. 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 Pineda @ [facility] in Medications Home Medications Medication Instructions Recorded Confirmed Type Omeprazole 40 mg PO DAILY #0 11/04/15 06/13/17 History Simvastatin 40 mg PO HS #0 03/04/16 06/13/17 History Acetaminophen [Children's Tylenol] 15 ml PO PRN PRN 06/13/17 06/13/17 History Aspirin [Ecotrin] 81 mg PO DAILY 06/13/17 06/13/17 History Sennosides/Docusate Sodium 1 each PO DAILY 06/13/17 06/13/17 History [Senna-S Tablet] Sertraline HCl [Zoloft] 1.25 ml PO DAILY 06/13/17 06/13/17 History Tamsulosin [Flomax] 0.4 mg PO HS 06/13/17 06/13/17 History Allergies Allergy/AdvReac Type Severity Reaction Status Date / Time No Known Allergies Allergy Verified 06/13/17 12:37 Exam Vital Signs: Temperature 99.7 F 06/13/17 15:37 Pulse Rate 88 06/13/17 16:25 Respiratory Rate 18 06/13/17 16:25 Blood Pressure 121/71 06/13/17 15:37 Pulse Oximetry 95 06/13/17 16:25 Height/Weight/BMI: Height 1.83 m Weight 80.6 kg Body Mass Index 24.0 - Constitutional Present: no acute distress, well nourished, well developed, thin - Routine HEENT Exam Head: Present: normocephalic Eye: Present: PERRL. Absent: conjunctival icterus, scleral injection ENT: Present: mucous membranes dry Comments: patient could not follow commands to fully open his mouth - Routine Neck Exam Present: supple - Routine Respiratory Exam Present: decreased breath sounds - Routine Cardiovascular Exam Present: RRR, S1, S2 - Routine Abdominal Exam Present: soft, non distended, non tender. Absent: normoactive bowel sounds ( hyperactive) - Routine Rectal Exam Comments: RN reported decreased rectal tone, and the fecal impaction palpated was very loose/soft/liquid - Routine Extremities Exam Present: no edema, pulses intact, normal capillary refill - Routine Skin Exam Present: intact, dry, warm (very warm) - Routine Neurological Exam Present: alert, altered mental status. Absent: oriented X3 (baseline per family ), moving all extremities (unable to assess - cannot follow commands) arms, legs are stiff and he resists moving elbows from flexion to extension..This is more pronounced on the right. - Routine Psychiatric Exam Present: unable to assess Results - Labs CBC & Chem 7: 06/13/17 12:00 06/13/17 12:37 - Imaging and Cardiology CT scan - abdomen Status: image reviewed by me Additional comments: Date of Exam: 06/13/17 EXAM: CT abdomen pelvis w con FINDINGS: LUNG BASES: There are bilateral lower lobe patchy areas of consolidation in the posterior aspect of both lower lobes consistent with bilateral lower lobe infiltrates. LIVER: The liver is normal size and contour showing no discrete lesions. SPLEEN: The spleen is normal size and contour showing no discrete lesions. GALLBLADDER/BILIARY: The gallbladder is normal in caliber showing no stones or wall thickening. There is no evidence of intra or extrahepatic biliary dilatation. PANCREAS: The pancreas is normal size and contour showing no obvious discrete lesions, abnormal enhancement, ductal dilatation or peripancreatic inflammatory change. ADRENAL GLANDS: The adrenal glands are not enlarged. KIDNEYS: The kidneys are symmetrical size, contour and enhancement showing no evidence of hydronephrosis, nephrocalcinosis or enhancing lesions. VASCULAR: The abdominal aorta and IVC are normal caliber. LYMPH NODES: No abdominal pelvic adenopathy there is mild to moderate scattered plaque formation in the abdominal aorta and iliac arteries. STOMACH/BOWEL LOOPS: The stomach is partially distended and is otherwise unremarkable. The bowel loops are normal course and caliber. There is no evidence of mechanical bowel obstruction or acute inflammatory bowel process. Scattered diverticula are seen along the course of the colon without evidence of diverticulitis. There is prominent retained fecal material within the colon and rectal vault. A normal appendix is visualized. URINARY BLADDER: The urinary bladder is normal size showing mild diffuse thickening of the bladder wall. There is mass effect on the base of the bladder by an enlarged prostate gland. PROSTATE: Enlarged measuring 5.4 cm appearing smoothly marginated. OSSEOUS STRUCTURES: Moderate degenerative lumbar spondylosis is evident. There is severe narrowing of the L5-S1 disc space with vacuum disc phenomenon. No acute fractures or focal destructive lesions are identified. PERITONEAL CAVITY: No free air or free fluid ABDOMINAL WALL: There is a small fat-containing periumbilical hernia. There are small bilateral fat-containing inguinal hernias. IMPRESSION: 1. Acute posterior bilateral lower lobe infiltrates. The location of bilateral lower lobe infiltrates is concerning and clinical correlation is recommended to exclude aspiration pneumonia. 2. Constipation with fecal impaction. 3. Diverticulosis coli without obvious evidence of diverticulitis. 4. No evidence of acute appendicitis. 5. Diffuse thickening of the wall the urinary bladder which is likely on the basis of hypertrophy from a letter obstruction though and cystitis is not excluded. 6. Prostatomegaly. Chest x-ray Status: image reviewed by me Additional comments: Date of Exam: 06/13/17 EXAM: XR chest 1V FINDINGS: The lung liao are hypoventilated. The heart appears borderline enlarged which may be artifactual due to the hypoventilated state. The trachea is midline is no evidence of mediastinal widening. There are streaky/patchy opacities at the lung bases bilaterally. There is a suspected more focal acute infiltrate in the left suprahilar region superimposed in the region of the left first rib articulation with the manubrium. The costophrenic angles are clear. There is no evidence of a pneumothorax or pleural effusion. The bony thorax appears stable. There is artifact from cardiac monitoring lead wires over the chest. IMPRESSION: 1. The lung liao are hypoventilated with bibasilar streaky/patchy opacities likely reflecting atelectasis and/or early interstitial infiltrate. A more focal acute opacity suspected in the left suprahilar region. 2. The heart is borderline size likely artifactual due to the hypoventilated state. There are no overt congestive changes. Assessment and Plan Assessment and Plan: ASSESSMENT Severe sepsis (lactate = 3.0) secondary to UTI and/or pneumonia (aspiration vs. CAP) SIRS = leukocytosis, fever, tachypnea Fecal impaction with underlying constipation Frontal temporal degeneration; nonverbal at baseline Parkinsonian-type syndrome Hyperlipidemia KARRI on CPAP Dysphagia - baseline diet is pureed with nectar thick liquids PLAN Admit, inpt status under the hospitalist service. Advanced directives: DPOA: Regina () Living will: No feeding tube Code status: DNR Severe sepsis Repeat lactate showing downward trend Continue abx/IVF. Hemodynamically stable on admit. Pneumonia (aspiration vs. CAP) Abx: Cefepime and clinda Consult speech therapy DuoNeb PRN Urine legionella and strep pneumo antigens Sputum culture as able UTI History of urinary incontinence Cont Cefepime Follow culture results Fecal impaction/constipation Interestingly stool in rectal vault was soft & reportedly with decreased rectal tone Given lumbar spine degeneration, could consider MRI to r/o neurologic basis for constipation & impaction Dulcolax suppository & cont bowel regimen Zofran PRN DVT Prophylaxis: SCD's GI Prophylaxis: other Resuscitation Status: Do Not Resuscitate - Physician Narrative Physician: Cliff Andino MD Narrative: Date: 06/13/17 Time: 1914 Have independently interviewed and examined pt. Chart reviewed. Case discussed with ED physician, Family, and my MATERIALS DEVELOPMENT ENGINEER. Care plan developed with my supervision ; agree with above. Present to ED secondary to decreasing LOC and temp elevation. Symptoms primary onset today-was in his typical state of health yesterday. Today, not eating as well. Moving much less and more sleepy-usually awake all during the day. Has been having cough-hard for him to clear sputum. Evaluated in ED. WBC and lactate elevated. Urine showing evidence of infection. CXR with infiltrate. Admitted to inpatient for further care and treatment. Lung: decreased, shallow breathing. No distress CV: regular AB: soft nd, BS decreased MSE: somnolent Gen: looks tired and weak. Plan: Inpatient admission to [facility] for treatment of severe sepsis secondary to UTI /Pneumonia. Cefepime and clindamycin for antimicrobial coverage. IVF for hydration. Speech to check swallow before initiating oral intake. SCD for DVT prevention. PT/OT to help improve strength once sepsis defervesce. Monitor lab. DNR as per his request. Care to return to PCP at time of discharge from [facility]. Hospital Course Summary Disclaimer: The visit summary below is not to be considered part of the above Progress Note. Hospital Course: 06/13/17 Admit, inpt status under the hospitalist service. Advanced directives: DPOA: Regina () Living will: No feeding tube Code status: DNR Severe sepsis Repeat lactate showing downward trend Continue abx/IVF. Hemodynamically stable on admit. Pneumonia (aspiration vs. CAP) Abx: Cefepime and clinda Consult speech therapy DuoNeb PRN Urine legionella and strep pneumo antigens Sputum culture as able UTI History of urinary incontinence Cont Cefepime Follow culture results Fecal impaction/constipation Interestingly stool in rectal vault was soft & reportedly with decreased rectal tone Given lumbar spine degeneration, could consider MRI to r/o neurologic basis for constipation & impaction Dulcolax suppository & cont bowel regimen Zofran PRN
[2017-06-13] MEDS: CLINDAMYCIN PB 600 MG/50 ML BAG IV SCH (18:14)
[2017-06-13] MEDS: CEFEPIME 1 GM in NS 100 ML IV SCH (18:53)
[2017-06-13] MEDS: ALBUTEROL/IPRATROPIUM 2.5mg-0.5mg/3ml NEB AEROSOL SCH ×2 (20:12→21:36)
[2017-06-13] MEDS ORDERED: SIMVASTATIN 40 MG PO SCH (21:00)
[2017-06-13] MEDS: SIMVASTATIN 40 MG TABLET PO SCH (21:21)
[2017-06-13] MEDS ORDERED: ACETAMINOPHEN 650 MG/20.3 ML SOLUTION PO PRN (21:29)
[2017-06-13] MEDS: ACETAMINOPHEN 650 MG/20.3 ML SOLUTION PO PRN (21:37)
[2017-06-13] MEDS: TAMSULOSIN 0.4 MG CAPSULE PO SCH (22:27)
[2017-06-14] MEDS: CLINDAMYCIN PB 600 MG/50 ML BAG IV SCH ×5 (00:15→23:28)
[2017-06-14] MEDS: NS 1,000 ML IV SCH ×3 (01:08→15:39)
[2017-06-14] MEDS: CEFEPIME 1 GM in NS 100 ML IV SCH ×4 (01:56→18:27)
[2017-06-14] MEDS: OMEPRAZOLE 20 MG CAPSULE PO SCH (05:37)
[2017-06-14] MEDS: ALBUTEROL/IPRATROPIUM 2.5mg-0.5mg/3ml NEB AEROSOL SCH ×5 (08:08→19:34)
[2017-06-14] MEDS: ACETAMINOPHEN 650 MG/20.3 ML SOLUTION PO PRN ×3 (08:33→21:35)
[2017-06-14] MEDS: SERTRALINE 25 MG TABLET PO SCH (08:33)
[2017-06-14] MEDS: ASPIRIN *EC* 81 MG TABLET PO SCH (08:33)
[2017-06-14] MEDS: SENNA + DOCUSATE TABLET PO SCH (08:33)
[2017-06-14] MEDS ORDERED: SERTRALINE HCL PO SCH (09:00)
[2017-06-14] MEDS ORDERED: NON-FORMULARY MEDICATION 1 EACH EACH (Omeprazole [Omeprazole] 40 MG) PO SCH (09:00)
--- NOTE | 2017-06-14 11:11 | Progress Note ---
- Date 06/14/17 Subjective: Baljit was awake and moving his arms. He had more facial expressions today and made eye contact with myself and his brother, his , and his daughter when they spoke to him. He followed directions from the respiratory therapist, ie "take a deep breath". His reports that he closes his eyes tightly after he coughs, as if it hurts him to swallow. His reported that he's been sleeping more. He ate fairly well for breakfast but had a loose cough when drinking thickened liquids. He has not had any further nausea or vomiting. He has had 4 bowel movements since arriving yesterday afternoon. Objective Vital signs: Temperature 100.3 F 06/14/17 07:39 Pulse Rate 82 06/14/17 08:01 Respiratory Rate 24 06/14/17 10:36 Blood Pressure 116/65 06/14/17 07:39 Pulse Oximetry 93 06/14/17 10:36 Height/Weight/BMI: Height 1.83 m Weight 79.3 kg Body Mass Index 24.0 - Constitutional Present: no acute distress, well nourished, well developed - Routine HEENT Exam Head: Present: normocephalic Eye: Present: PERRL. Absent: conjunctival icterus, scleral injection ENT: Present: mucous membranes moist, oropharynx clear (no thrush seen) - Routine Respiratory Exam Present: decreased breath sounds (bases), CTA bilaterally - Routine Cardiovascular Exam Present: RRR, S1, S2 - Routine Abdominal Exam Present: soft, normoactive bowel sounds, non distended, non tender - Routine Extremities Exam Present: no edema, pulses intact, normal capillary refill - Routine Musculoskeletal Exam Musculoskeletal: Present: no clubbing or cyanosis - Routine Skin Exam Present: intact, dry, warm - Routine Neurological Exam Present: alert - Routine Psychiatric Exam Absent: unable to assess (baseline per spouse) Results - Labs CBC & Chem 7: 06/14/17 04:37 06/14/17 04:37 Assessment and Plan (1) UTI (urinary tract infection) Current visit: Yes Status: Acute Assessment and Plan: ASSESSMENT Severe sepsis (lactate = 3.0) secondary to E. coli UTI and/or pneumonia ( aspiration vs. CAP) SIRS = leukocytosis, fever, tachypnea UTI with E coli Pneumonia - CAP vs aspiration Fecal impaction with underlying constipation Hypernatremia (not POA) Frontal temporal degeneration; nonverbal at baseline Parkinsonian-type syndrome Hyperlipidemia KARRI on CPAP Dysphagia - baseline diet is pureed with nectar thick liquids PLAN Severe sepsis Improving. WBC trending down (12). Remains hemodynamically stable. Pneumonia (aspiration vs. CAP) Abx: Cefepime and clinda. Continue DuoNeb. Evaluated by speech therapy: recommend pureed diet, nectar thick liquids, crushed meds in pudding. No skilled services needed at this time. Urine legionella and strep pneumo antigens, sputum culture - pending UTI UC + E. coli; sensitivities pending Cont Cefepime Hypernatremia (Na 148) Change IVF to 1/2 NS at 75 ml/hr Fecal impaction/constipation Improving. Several bowel movements since admission. Thu Now that able to take oral better, will start Miralax to help with fecal impaction--has been passing stool, worry stool is just oozing around impaction. Will place consult with PT/OT in am to help improve functional status. DVT Prophylaxis: SCD's GI Prophylaxis: other Resuscitation Status: Do Not Resuscitate - Time spent with patient Time with patient PN: 25 minutes - Physician Narrative Physician: Cliff Andino MD Narrative: Date: 06/14/17 Time: 1340 Have independently interviewed and examined pt. Chart reviewed. Case discussed with CM, family, and my ENVIRONMENTAL COMPLIANCE ENGINEER. Care plan developed with my supervision; agree with above. More awake and alert today-opens eyes and tracks. Less tired-sleeping less during the day. Oral intake improving. No ab pain. Breathing well on RA. Lungs: decreased CV: regular AB: soft nt, slight distention, BS decreased EXT : no edema, SCD in place MSE: awake, tracks Plan: Continue with ceftriaxone and clindamycin for urinary/pulm coverage. Urine growing Ecoli - check on sensitivities. Now that able to take oral better , will start Miralax to help with fecal impaction--has been passing stool, worry stool is just oozing around impaction. Will place consult with PT/OT in am. IVF change to 1/2NS and rate decreased to 75cc/hr as oral drive increasing and sodium increased. Nursing to obtain mattress to help decrease risk for pressure ulcers/bed sores. Monitor lab. Continue with supportive care. Hospital Course Summary Disclaimer: The visit summary below is not to be considered part of the above Progress Note. Hospital Course: 06/13/17 Admit, inpt status under the hospitalist service. Advanced directive: DPOA: Regina (). Living will: No feeding tube. Code status: DNR Severe sepsis: Repeat lactate showing downward trend. Hemodynamically stable on admit. Pneumonia (aspiration vs. CAP): Cefepime and clinda. DuoNeb QID. Consult speech therapy. UTI: History of urinary incontinence. Cont Cefepime. UC sent. Fecal impaction/constipation: Dulcolax suppository & cont bowel regimen. Zofran PRN. 06/14/17 Severe sepsis: Improving. WBC trending down (12). Remains hemodynamically stable. Pneumonia (aspiration vs. CAP): Evaluated by speech therapy: recommend pureed diet, nectar thick liquids, crushed meds in pudding. Urine legionella and strep pneumo antigens, sputum culture - pending UTI: UC + E. coli; sensitivities pending. Cont Cefepime. Hypernatremia (Na 148) : Change IVF to 1/2 NS at 75 ml/hr Fecal impaction/constipation: Improving. Several bowel movements since admission. Start Miralax to help with fecal impaction, worry stool is just oozing around impaction.
[2017-06-14] MEDS: 1/2 NS 1,000 ML IV SCH (11:57)
[2017-06-14 13:21] VITALS: BMI 23.7
[2017-06-14] MEDS: POLYETHYL GLYCOL 3350 17gm PACKET PO SCH (17:24)
[2017-06-14] MEDS: SIMVASTATIN 40 MG TABLET PO SCH (20:47)
[2017-06-14] MEDS: TAMSULOSIN 0.4 MG CAPSULE PO SCH (20:47)
[2017-06-15] MEDS: CEFEPIME 1 GM in NS 100 ML IV SCH ×4 (01:22→18:19)
[2017-06-15] MEDS: 1/2 NS 1,000 ML IV SCH ×2 (05:13→18:26)
[2017-06-15] MEDS: CLINDAMYCIN PB 600 MG/50 ML BAG IV SCH ×4 (05:14→23:06)
[2017-06-15] MEDS: OMEPRAZOLE 20 MG CAPSULE PO SCH (06:42)
[2017-06-15] MEDS: ALBUTEROL/IPRATROPIUM 2.5mg-0.5mg/3ml NEB AEROSOL SCH ×4 (08:10→23:19)
[2017-06-15] MEDS: ASPIRIN *EC* 81 MG TABLET PO SCH (08:57)
[2017-06-15] MEDS: POLYETHYL GLYCOL 3350 17gm PACKET PO SCH (08:57)
[2017-06-15] MEDS: SENNA + DOCUSATE TABLET PO SCH (08:57)
[2017-06-15] MEDS: SERTRALINE 25 MG TABLET PO SCH (08:57)
--- NOTE | 2017-06-15 09:37 | Progress Note ---
- Date 06/15/17 Subjective: Baljit is awake and alert. His and daughter are in the room, and they state that he's looking much better. He ate very well yesterday and they didn't notice any more choking than usual. He has had a few small bowel movements which have been liquid and one soft one. He has not been having nausea or vomiting. He is breathing easily on room air. He tracks me with his eyes but is nonverbal and does not follow commands. Objective Vital signs: Temperature 98.9 F 06/15/17 07:28 Pulse Rate 82 06/15/17 07:28 Respiratory Rate 22 06/15/17 08:10 Blood Pressure 130/68 06/15/17 07:28 Pulse Oximetry 93 06/15/17 08:10 Height/Weight/BMI: Height 1.83 m Weight 80 kg Body Mass Index 23.7 - Constitutional Present: no acute distress, well nourished, well developed - Routine HEENT Exam Head: Present: normocephalic Eye: Present: PERRL. Absent: conjunctival icterus, scleral injection - Routine Respiratory Exam Present: decreased breath sounds (bases) - Routine Cardiovascular Exam Present: RRR, S1, S2 - Routine Abdominal Exam Present: normoactive bowel sounds, non tender, distended (mild) - Routine Extremities Exam Present: no edema, pulses intact, normal capillary refill - Routine Back/Spine/Pelvis Exam Comments: His and I helped him to sit up in bed so I could listen to his lungs. His back was stiff and he did not assist us. - Routine Musculoskeletal Exam Musculoskeletal: Present: no clubbing or cyanosis - Routine Skin Exam Present: intact, dry, warm - Routine Neurological Exam Present: alert - Routine Psychiatric Exam Present: unable to assess Results - Labs CBC & Chem 7: 06/15/17 05:12 06/15/17 05:12 Microbiology Results: Microbiology 06/13/17 17:42 Urine Legionella Urinary Antigen - Final 06/13/17 17:42 Urine Streptococcus pneumoniae Antigen (M - Final Assessment and Plan (1) UTI (urinary tract infection) Current visit: Yes Status: Acute Assessment and Plan: ASSESSMENT Severe sepsis (lactate = 3.0) secondary to E. coli UTI and/or pneumonia ( aspiration vs. CAP) - Resolved SIRS = leukocytosis, fever, tachypnea UTI with E coli Pneumonia - CAP vs aspiration Fecal impaction with underlying constipation Hypernatremia (not POA) Frontal temporal degeneration; nonverbal at baseline Parkinsonian-type syndrome Hyperlipidemia KARIR on CPAP Dysphagia - baseline diet is pureed with nectar thick liquids PLAN Severe sepsis Resolved. WBC normal at 8.4. Remains hemodynamically stable. BC - no growth after 1 day PT consult pending Pneumonia (aspiration vs. CAP) Abx: Cefepime and clinda, day #3. Continue DuoNeb. Repeat CXR today to f/u on infiltrates seen on initial CXR Urine legionella and strep pneumo antigens - negative, sputum culture - pending UTI UC + pansensitive E. coli; Cont Cefepime Hypernatremia Resolved, Na 143 Decrease rate of IVF. Fecal impaction/constipation Improving. Give enema d/t impaction. Continue MiraLAX. DVT Prophylaxis: SCD's GI Prophylaxis: other Resuscitation Status: Do Not Resuscitate - Time spent with patient Time with patient PN: 25 minutes - Physician Narrative Physician: Cliff Andino MD Narrative: Date: 06/15/17 Time: 1315 Have independently interviewed and examined pt. Chart reviewed. Case discussed with CM, family,and my PROJECT DEVELOPMENT ENGINEER. Care plan developed with my supervision; agree with above. Making slow gains. Awake and alert, but strength decreased-typically can feed himself but now is needed extra help. PT/OT started working with him today. Breathing stable. Passing stools. WBC normalized. Lungs: decreased, no distress CV: regular MSE: awake alert, non-verbal Plan: Continue with antibiotics. Encourage therapy to help improve functional status. Decrease IVF, encourage oral intake. Monitor lab. Hospital Course Summary Disclaimer: The visit summary below is not to be considered part of the above Progress Note. Hospital Course: 06/13/17 Admit, inpt status under the hospitalist service. Advanced directive: DPOA: Regina (). Living will: No feeding tube. Code status: DNR Severe sepsis: Repeat lactate showing downward trend. Hemodynamically stable on admit. Pneumonia (aspiration vs. CAP): Cefepime and clinda. DuoNeb QID. Consult speech therapy. UTI: History of urinary incontinence. Cont Cefepime. UC sent. Fecal impaction/constipation: Dulcolax suppository & cont bowel regimen. Zofran PRN. 06/14/17 Severe sepsis: Improving. WBC trending down (12). Remains hemodynamically stable. Pneumonia (aspiration vs. CAP): Evaluated by speech therapy: recommend pureed diet, nectar thick liquids, crushed meds in pudding. Urine legionella and strep pneumo antigens, sputum culture - pending UTI: UC + E. coli; sensitivities pending. Cont Cefepime. Hypernatremia (Na 148) : Change IVF to 1/2 NS at 75 ml/hr Fecal impaction/constipation: Improving. Several bowel movements since admission. Start Miralax to help with fecal impaction, worry stool is just oozing around impaction. 06/15/17 Severe sepsis : Resolved. WBC normal at 8.4. Remains hemodynamically stable. BC - no growth after 1 day Pneumonia (aspiration vs. CAP) : Continue abx, repeat CXR. Urine legionella and strep pneumo antigens - negative, sputum culture - pending UTI : UC + pansensitive E. coli; Cont Cefepime Hypernatremia : Resolved, Na 143. Decrease rate of IVF. Fecal impaction/constipation : Improving. Give enema d/t impaction. Continue MiraLAX.
[2017-06-15] MEDS ORDERED: FLEET PHOSPHO - SODA ENEMA 133ml PR ONE (09:44)
--- NOTE | 2017-06-15 13:29 | XRay Report ---
Indication: f/u infiltrates/pneumonia XR chest 1V: Comparison: 06/13/2017 Technique: Single semiupright portable chest Findings: Since the previous study little change. Patient continues to show chronic lung changes with increased interstitial markings. Heart and central vascularity are unremarkable. Impression: No acute cardiopulmonary findings with just mildly increased interstitial markings similar to previous exams and left side slightly greater than right. .
[2017-06-15] MEDS ORDERED: DiltiaZEM 25 MG/5 ML INJECTION IVP ONE (20:21)
[2017-06-15] MEDS: TAMSULOSIN 0.4 MG CAPSULE PO SCH (21:25)
[2017-06-15] MEDS: SIMVASTATIN 40 MG TABLET PO SCH (21:25)
[2017-06-16] MEDS: CEFEPIME 1 GM in NS 100 ML IV SCH ×4 (01:35→18:33)
[2017-06-16] MEDS: 1/2 NS 1,000 ML IV SCH ×2 (04:16)
[2017-06-16] MEDS: CLINDAMYCIN PB 600 MG/50 ML BAG IV SCH ×4 (04:17→22:40)
[2017-06-16] MEDS: OMEPRAZOLE 20 MG CAPSULE PO SCH (06:31)
[2017-06-16] MEDS: SALINE FLUSH 10ml SYRINGE IVF PRN ×2 (06:32→17:39)
[2017-06-16] MEDS: ALBUTEROL/IPRATROPIUM 2.5mg-0.5mg/3ml NEB AEROSOL SCH ×4 (07:37→18:50)
[2017-06-16] MEDS: POLYETHYL GLYCOL 3350 17gm PACKET PO SCH (09:13)
[2017-06-16] MEDS: ASPIRIN *EC* 81 MG TABLET PO SCH (09:14)
[2017-06-16] MEDS: SERTRALINE 25 MG TABLET PO SCH (09:14)
[2017-06-16] MEDS: SENNA + DOCUSATE TABLET PO SCH (09:14)
--- NOTE | 2017-06-16 11:01 | Progress Note ---
- Date 06/16/17 Subjective: F/U: Severe sepsis, UTI with E coli, Pneumonia Resting in bed, awake/alert. Nonverbal. Did have episode of Afib/RVR overnight - HR improved post IV diltiazem. WBC normal. Nursing charting 100% intake of meals. Breathing comfortably on RA. Objective Vital signs: Temperature 98.5 F 06/16/17 07:12 Pulse Rate 78 06/16/17 07:56 Respiratory Rate 18 06/16/17 07:37 Blood Pressure 129/73 06/16/17 07:12 Pulse Oximetry 94 06/16/17 07:37 Height/Weight/BMI: Height 1.83 m Weight 80.4 kg Body Mass Index 23.7 - Constitutional Present: well nourished, well developed, average body habitus. Absent: agitated , somnolent, obtunded - Routine HEENT Exam Head: Present: normocephalic, atraumatic Eye: Present: EOMI, PERRL ENT: Present: mucous membranes moist - Routine Respiratory Exam Present: decreased breath sounds. Absent: rales, respiratory distress, rhonchi , stridor, wheezes, crackles - Routine Cardiovascular Exam Present: RRR, no murmur - Routine Abdominal Exam Present: soft, normoactive bowel sounds, non distended, non tender - Routine Extremities Exam Present: no edema, pulses intact. Absent: cyanosis, clubbing Comments: SCD in place - Routine Skin Exam Present: dry, warm - Routine Neurological Exam Present: alert, CN II-XII intact, vision grossly intact, hearing grossly intact. Absent: altered mental status - Routine Psychiatric Exam Present: normal affect, cooperative. Absent: anxious, agitated Results - Labs CBC & Chem 7: 06/16/17 04:07 06/16/17 04:07 Microbiology Results: Microbiology 06/13/17 17:42 Urine Legionella Urinary Antigen - Final 06/13/17 17:42 Urine Streptococcus pneumoniae Antigen (M - Final Assessment and Plan (1) UTI (urinary tract infection) Current visit: Yes Status: Acute Assessment and Plan: ASSESSMENT Severe sepsis (lactate = 3.0) secondary to E. coli UTI and/or pneumonia ( aspiration vs. 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 WBC normal. Will d/c IVF as oral drive improved. Monitor HR secondary transient Afib/RVR overnight-resolved post IV diltiazem. Patient working with PT/OT/Speech to make functional gains. Recheck CBC in am due to resolving sepsis. Repeat BMP in am to to medication use. DVT Prophylaxis: SCD's Resuscitation Status: Do Not Resuscitate - Time spent with patient Time with patient PN: 25 minutes - Physician Narrative Physician: Cliff Andino MD Narrative: Date: 06/16/17 Time: 1057 Hospital Course Summary Disclaimer: The visit summary below is not to be considered part of the above Progress Note. Hospital Course: 06/13/17 Admit, inpt status under the hospitalist service. Advanced directive: DPOA: Regina (). Living will: No feeding tube. Code status: DNR Severe sepsis: Repeat lactate showing downward trend. Hemodynamically stable on admit. Pneumonia (aspiration vs. CAP): Cefepime and clinda. DuoNeb QID. Consult speech therapy. UTI: History of urinary incontinence. Cont Cefepime. UC sent. Fecal impaction/constipation: Dulcolax suppository & cont bowel regimen. Zofran PRN. 06/14/17 Severe sepsis: Improving. WBC trending down (12). Remains hemodynamically stable. Pneumonia (aspiration vs. CAP): Evaluated by speech therapy: recommend pureed diet, nectar thick liquids, crushed meds in pudding. Urine legionella and strep pneumo antigens, sputum culture - pending UTI: UC + E. coli; sensitivities pending. Cont Cefepime. Hypernatremia (Na 148) : Change IVF to 1/2 NS at 75 ml/hr Fecal impaction/constipation: Improving. Several bowel movements since admission. Start Miralax to help with fecal impaction, worry stool is just oozing around impaction. 06/15/17 Severe sepsis : Resolved. WBC normal at 8.4. Remains hemodynamically stable. BC - no growth after 1 day Pneumonia (aspiration vs. CAP) : Continue abx, repeat CXR. Urine legionella and strep pneumo antigens - negative, sputum culture - pending UTI : UC + pansensitive E. coli; Cont Cefepime Hypernatremia : Resolved, Na 143. Decrease rate of IVF. Fecal impaction/constipation : Improving. Give enema d/t impaction. Continue MiraLAX. 06/16/17 Continue with cefepime and clindamycin for urine and lung coverage - clinically improving. WBC normal. Will d/c IVF as oral drive improved. Monitor HR secondary transient Afib/RVR overnight-resolved post IV diltiazem. Patient working with PT/OT/Speech to make functional gains.
[2017-06-16] MEDS: SIMVASTATIN 40 MG TABLET PO SCH (21:03)
[2017-06-16] MEDS: TAMSULOSIN 0.4 MG CAPSULE PO SCH (21:03)
[2017-06-17] MEDS: CEFEPIME 1 GM in NS 100 ML IV SCH ×2 (00:34→06:39)
[2017-06-17] MEDS: CLINDAMYCIN PB 600 MG/50 ML BAG IV SCH ×3 (05:41→17:35)
[2017-06-17] MEDS: NS FLUSH BAG 500ml IV PRN (05:41)
[2017-06-17] MEDS: OMEPRAZOLE 20 MG CAPSULE PO SCH (06:39)
[2017-06-17] MEDS: ALBUTEROL/IPRATROPIUM 2.5mg-0.5mg/3ml NEB AEROSOL SCH ×4 (07:05→20:25)
[2017-06-17] MEDS: POLYETHYL GLYCOL 3350 17gm PACKET PO SCH (10:25)
[2017-06-17] MEDS: SERTRALINE 25 MG TABLET PO SCH (10:25)
[2017-06-17] MEDS: SENNA + DOCUSATE TABLET PO SCH (10:25)
[2017-06-17] MEDS: ASPIRIN *EC* 81 MG TABLET PO SCH (10:26)
--- NOTE | 2017-06-17 11:39 | Progress Note ---
- Date 06/17/17 Subjective: Thomas is seen today in follow up. He is nonverbal at baseline, but is alert. Family did have some questions re: plan of care. D/W family and attempted to answer questions. Chart reviewed- multiple BM noted on chart. Objective Vital signs: Temperature 97.6 F 06/17/17 07:42 Pulse Rate 74 06/17/17 07:42 Respiratory Rate 18 06/17/17 10:59 Blood Pressure 121/57 06/17/17 07:42 Pulse Oximetry 94 06/17/17 10:59 Height/Weight/BMI: Height 1.83 m Weight 79.2 kg Body Mass Index 23.7 - Constitutional Present: no acute distress, well developed, average body habitus - Routine HEENT Exam Head: Present: normocephalic, atraumatic Eye: Present: EOMI, PERRL - Routine Respiratory Exam Present: decreased breath sounds, CTA bilaterally. Absent: rales, rhonchi, crackles - Routine Cardiovascular Exam Present: RRR, S1, S2 - Routine Abdominal Exam Present: soft, normoactive bowel sounds, non distended, non tender - Routine Extremities Exam Present: no edema, non tender - Routine Skin Exam Present: intact, dry, warm - Routine Neurological Exam Present: alert, altered mental status - Routine Psychiatric Exam Present: unable to assess (Nonverbal) Results - Labs CBC & Chem 7: 06/17/17 04:15 06/17/17 04:15 Microbiology Results: Microbiology 06/13/17 17:42 Urine Legionella Urinary Antigen - Final 06/13/17 17:42 Urine Streptococcus pneumoniae Antigen (M - Final - Imaging and Cardiology Chest x-ray Additional comments: Impression: No acute cardiopulmonary findings with just mildly increased interstitial markings similar to previous exams and left side slightly greater than right. . Assessment and Plan (1) UTI (urinary tract infection) Current visit: Yes Status: Acute Assessment and Plan: ASSESSMENT Severe sepsis (lactate = 3.0) secondary to E. coli UTI and/or pneumonia ( aspiration vs. 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 Add Ceftriaxone, stop Cefepime. Nebulized treatments QID. He is drinking well- IVF stopped. Chronic dysphagia- pureed diet/nectar thick liquids. Transient Atrial Fib. HR now controlled. Fecal impaction appears resolved- multiple BM in the last few days. Hypernatremia resolved. Family requesting therapy consult- will order. DC planning. DVT Prophylaxis: SCD's GI Prophylaxis: other (PPI) Resuscitation Status: Do Not Resuscitate - Time spent with patient Time with patient PN: 25 minutes - Physician Narrative Physician: Cliff Andino MD Narrative: Date: 06/17/17 Time: 1240 Have independently interviewed and examined pt. Chart reviewed. Case discussed with pt's and my MICROBIOLOGY LAB MANAGER. Care plan developed with my supervision; agree with above. Doing okay. Still very weak-hard to assist with transfers. Oral drive stable. Breathing well on RA-some cough. Bowels moving. Lungs: decreased, upper airway noises. No distress on RA. CV: regular AB: soft nt Plan: Continue with antimicrobial therapy. Will recheck CXR in am to assess improvement of infiltrate and XUB secondary to fecal impaction. Continue with therapy to improve functional status - likely will need IRU vs skilled prior to return home. Hospital Course Summary Disclaimer: The visit summary below is not to be considered part of the above Progress Note. Hospital Course: 06/13/17 Admit, inpt status under the hospitalist service. Advanced directive: DPOA: Regina (). Living will: No feeding tube. Code status: DNR Severe sepsis: Repeat lactate showing downward trend. Hemodynamically stable on admit. Pneumonia (aspiration vs. CAP): Cefepime and clinda. DuoNeb QID. Consult speech therapy. UTI: History of urinary incontinence. Cont Cefepime. UC sent. Fecal impaction/constipation: Dulcolax suppository & cont bowel regimen. Zofran PRN. 06/14/17 Severe sepsis: Improving. WBC trending down (12). Remains hemodynamically stable. Pneumonia (aspiration vs. CAP): Evaluated by speech therapy: recommend pureed diet, nectar thick liquids, crushed meds in pudding. Urine legionella and strep pneumo antigens, sputum culture - pending UTI: UC + E. coli; sensitivities pending. Cont Cefepime. Hypernatremia (Na 148) : Change IVF to 1/2 NS at 75 ml/hr Fecal impaction/constipation: Improving. Several bowel movements since admission. Start Miralax to help with fecal impaction, worry stool is just oozing around impaction. 06/15/17 Severe sepsis : Resolved. WBC normal at 8.4. Remains hemodynamically stable. BC - no growth after 1 day Pneumonia (aspiration vs. CAP) : Continue abx, repeat CXR. Urine legionella and strep pneumo antigens - negative, sputum culture - pending UTI : UC + pansensitive E. coli; Cont Cefepime Hypernatremia : Resolved, Na 143. Decrease rate of IVF. Fecal impaction/constipation : Improving. Give enema d/t impaction. Continue MiraLAX. 06/16/17 Continue with cefepime and clindamycin for urine and lung coverage - clinically improving. WBC normal. Will d/c IVF as oral drive improved. Monitor HR secondary transient Afib/RVR overnight-resolved post IV diltiazem. Patient working with PT/OT/Speech to make functional gains. 06/07/17 +E.Coli UTI, possible aspiration Continue Clindamycin. Add Ceftriaxone, stop Cefepime. Nebulized treatments QID. Chronic dysphagia- pureed diet/nectar thick liquids. Transient Atrial Fib. HR now controlled. Fecal impaction appears resolved- multiple BM in the last few days. Will check KUB in am. Hypernatremia resolved. DC planning. Likely need IRU vs skilled prior to discharge.
[2017-06-17] MEDS: CEFTRIAXONE 1 G in NS 100 ML IV SCH (13:55)
[2017-06-17] MEDS ORDERED: DiltiaZEM 25 MG/5 ML INJECTION IVP ONE (18:15)
[2017-06-17] MEDS: SIMVASTATIN 40 MG TABLET PO SCH (20:08)
[2017-06-17] MEDS: ACETAMINOPHEN 650 MG/20.3 ML SOLUTION PO PRN (20:08)
[2017-06-17] MEDS: TAMSULOSIN 0.4 MG CAPSULE PO SCH (20:08)
[2017-06-18] MEDS: CLINDAMYCIN PB 600 MG/50 ML BAG IV SCH ×3 (00:18→10:23)
[2017-06-18] MEDS: OMEPRAZOLE 20 MG CAPSULE PO SCH (05:48)
[2017-06-18] MEDS: ALBUTEROL/IPRATROPIUM 2.5mg-0.5mg/3ml NEB AEROSOL SCH ×3 (08:01→15:16)
[2017-06-18] MEDS: POLYETHYL GLYCOL 3350 17gm PACKET PO SCH (08:17)
[2017-06-18] MEDS: SENNA + DOCUSATE TABLET PO SCH (08:17)
[2017-06-18] MEDS: SERTRALINE 25 MG TABLET PO SCH (08:17)
[2017-06-18] MEDS: ASPIRIN *EC* 81 MG TABLET PO SCH (08:17)
[2017-06-18] MEDS: NS FLUSH BAG 500ml IV PRN (10:23)
[2017-06-18] MEDS: CEFTRIAXONE 1 G in NS 100 ML IV SCH (11:04)
--- NOTE | 2017-06-18 12:20 | XRay Report ---
INDICATION: F/U infiltrate PROCEDURE: CHEST 2-VIEWS UPRIGHT (PA & LAT) Encounter: Initial COMPARISON: June 15, 2017 FINDINGS: The lungs are clear without evidence of focal abnormal airspace opacity. There is no pleural effusion or pneumothorax. The heart size, mediastinal contours and pulmonary vascularity are within normal limits. There is no significant skeletal abnormality. IMPRESSION: No acute cardiopulmonary disease. .
--- NOTE | 2017-06-18 12:21 | XRay Report ---
Indication: Constipation PROCEDURE: XR KUB: Encounter: Initial Comparison: CT abdomen dated June 13, 2017 Findings: The visualized lung bases are clear. The bowel gas pattern is nonobstructive and nonspecific. Gas is seen in nondilated small and large bowel to the level of the rectum. Interval decrease in stool burden. The bony structures are grossly unremarkable. Impression: Nonobstructive nonspecific bowel gas pattern. Decrease in colonic stool burden. .
--- NOTE | 2017-06-18 14:55 | Progress Note ---
- Date 06/18/17 Subjective: Patient is seen today resting in bed. History obtained from his . She had concerns re: his L pupil being larger than his R last night. Also noted redness to the L eye. reports he is also holding the right side of his head and she thought he may have had a headache. He is not continuing to have any pupil irregularity today and has no longer been holding the right side of his head. states his left eye was mattery this morning and improved following application of a warm compress. is concerned about discharge planning as she doesn't feel like she he is strong enough that she can take him home. She also wonders if OT will be coming to see patient because physical therapy would only work with his lower extremities today. At baseline, cares for patient at home with the help of home health 2 hours a day Sunday through Sunday. She is unable to bathe patient without help. She is still able to get him in and out of bed and takes him to the bathroom every 1-2 hours, although he is mostly incontinent. She tries to get him out of the house once a week to [place] the [place] because he seems to enjoy that. She is still able to transfer him from the car to his electric wheelchair. Objective Vital signs: Temperature 98.0 F 06/18/17 07:27 Pulse Rate 74 06/18/17 08:00 Respiratory Rate 24 06/18/17 11:19 Blood Pressure 129/80 06/18/17 07:27 Pulse Oximetry 96 06/18/17 11:19 Height/Weight/BMI: Height 1.83 m Weight 78.4 kg Body Mass Index 23.7 - Constitutional Present: no acute distress, well nourished, well developed - Routine HEENT Exam Head: Present: normocephalic, atraumatic Comments: No mattering or redness to the eyes at this time. He may have a very slight amount of ptosis to the left eye compared to the right. Pupils are equal at this time. - Routine Respiratory Exam Present: CTA bilaterally. Absent: wheezes - Routine Cardiovascular Exam Present: RRR, no murmur - Routine Abdominal Exam Present: soft, non distended, non tender - Routine Extremities Exam Present: no edema, normal capillary refill - Routine Skin Exam Present: dry, warm - Routine Neurological Exam Present: alert, altered mental status. Absent: normal speech (patient does not speak. He has jerking type movements on the left side of his body during the visit periodically. He will make eye contact but is unable to display any type of meaningful communication.) - Routine Lymphatic Exam Lymphatic: Absent: adenopathy - Routine Psychiatric Exam Present: cooperative, unable to assess Results - Labs CBC & Chem 7: 06/18/17 04:33 06/18/17 04:33 Microbiology Results: Microbiology 06/13/17 17:42 Urine Legionella Urinary Antigen - Final 06/13/17 17:42 Urine Streptococcus pneumoniae Antigen (M - Final Assessment and Plan (1) UTI (urinary tract infection) Current visit: Yes Status: Acute Assessment and Plan: ASSESSMENT Severe sepsis (lactate = 3.0) secondary to E. coli UTI and/or pneumonia ( aspiration vs. 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 CXR today showed no infiltrate and he has had no further cough or fever. Fecal impaction appears resolved based on KUB today and he has had multiple BMs in the last few days. PT worked with patient today. OT signed off on patient last week. 's concern is getting patient strong enough to go home. Discussed DC planning with . Doubt he would qualify for IRU and best option is likely SNU. Will discuss with Dr. Ojeda and case management. Clarified with nursing staff--pt's states pt went back into a-fib last night. Nurse reports PRN Cardizem was given b/c nurses noted on tele his rates were up and he was having bigemeny/trigemeny. Nurse reports pt was asymptomatic and no a-fib was ever noted. Sxs resolved after cardizem was given. - Physician Narrative Physician: Samara Ojeda MD Narrative: Date: 06/18/17 Time: 6:55 PM-I reviewed this chart, the patient history, and the FIRE CHIEF's/PA's documented findings as above. We discussed and formulated the assessment and plan as above with the additions below.-Dr. Ojeda Patient was seen this evening in his room accompanied by his , daughter and granddaughters. He was eating his pured meal and drinking thickened liquids. He was able to feed himself with some supervision. He appeared in no distress. He is nonverbal. His states that he seems to be back to his baseline other than the strength in his legs. She is uncertain if he is strong enough at this point to go home safely because he needs to be able to assist with transfers from bed to chair. His level of alertness is back to normal. His appetite and swallowing appears to be normal. On exam he is alert and in no acute distress. He is sitting up in a chair and feeding himself. HEENT reveals sclerae to be anicteric and pupils are equal. Oropharynx is moist. Neck is supple. Chest is clear to auscultation. Cardiovascular reveals a regular rate and rhythm. Abdomen is soft and nontender. Extremities reveal SCDs in place. There is only trace edema. Family states his edema is much better here in the hospital than it has been at home. KUB today shows nonobstructive nonspecific bowel gas pattern with decrease in colonic stool burden. Chest x-ray reveals no acute cardiopulmonary disease. I viewed the films myself and agree. Review of telemetry shows that the patient had what looks like atrial flutter on 06/15 and possibly on 06/16/2016. He had bigeminy, trigeminy and atrial fibrillation on 06/17/2016. Telemetry since then his showed no abnormalities. Impression Escherichia coli UTI Encephalopathy-resolved Possible aspiration pneumonia-chest x-ray clear Constipation-appears resolved, check for impaction tonight. Generalized weakness-may need IRU or chcf prior to going home Intermittent atrial fibrillation/flutter Plan Discontinue Rocephin and start oral Keflex tomorrow. Regarding atrial fibrillation, will discontinue breathing treatments. The patient's family and I discussed options which would include cardiology consultation, possible anticoagulation to prevent stroke, and possible medication to retain sinus rhythm versus medication to slow heart rate. We discussed risks and benefits of these options, versus simply discontinuing breathing treatments and monitoring. It's possible that these arrhythmias are related to his acute illness. Family would not want to start anticoagulation. They want to only continue aspirin at this time. We will continue to monitor on telemetry. She wants to consult with his primary care doctor after discharge and consider outpatient heart monitoring and if he has arrhythmias as an outpatient, consider treatment at that time. If he has recurrence of atrial fibrillation while he still here in the hospital, we can again discuss options. Await PT evaluation tomorrow to see if the patient is strong enough to go home safely versus needing further rehabilitation after discharge. There is an 35 minutes of time spent seeing and evaluating the patient, reviewing the chart, and determining care plan. Hospital Course Summary Disclaimer: The visit summary below is not to be considered part of the above Progress Note. Hospital Course: 06/13/17 Admit, inpt status under the hospitalist service. Advanced directive: DPOA: Regina (). Living will: No feeding tube. Code status: DNR Severe sepsis: Repeat lactate showing downward trend. Hemodynamically stable on admit. Pneumonia (aspiration vs. CAP): Cefepime and clinda. DuoNeb QID. Consult speech therapy. UTI: History of urinary incontinence. Cont Cefepime. UC sent. Fecal impaction/constipation: Dulcolax suppository & cont bowel regimen. Zofran PRN. 06/14/17 Severe sepsis: Improving. WBC trending down (12). Remains hemodynamically stable. Pneumonia (aspiration vs. CAP): Evaluated by speech therapy: recommend pureed diet, nectar thick liquids, crushed meds in pudding. Urine legionella and strep pneumo antigens, sputum culture - pending UTI: UC + E. coli; sensitivities pending. Cont Cefepime. Hypernatremia (Na 148) : Change IVF to 1/2 NS at 75 ml/hr Fecal impaction/constipation: Improving. Several bowel movements since admission. Start Miralax to help with fecal impaction, worry stool is just oozing around impaction. 06/15/17 Severe sepsis : Resolved. WBC normal at 8.4. Remains hemodynamically stable. BC - no growth after 1 day Pneumonia (aspiration vs. CAP) : Continue abx, repeat CXR. Urine legionella and strep pneumo antigens - negative, sputum culture - pending UTI : UC + pansensitive E. coli; Cont Cefepime Hypernatremia : Resolved, Na 143. Decrease rate of IVF. Fecal impaction/constipation : Improving. Give enema d/t impaction. Continue MiraLAX. 06/16/17 Continue with cefepime and clindamycin for urine and lung coverage - clinically improving. WBC normal. Will d/c IVF as oral drive improved. Monitor HR secondary transient Afib/RVR overnight-resolved post IV diltiazem. Patient working with PT/OT/Speech to make functional gains. 06/17/17 +E.Coli UTI, possible aspiration Continue Clindamycin. Add Ceftriaxone, stop Cefepime. Nebulized treatments QID. Chronic dysphagia- pureed diet/nectar thick liquids. Transient Atrial Fib. HR now controlled. Fecal impaction appears resolved- multiple BM in the last few days. Will check KUB in am. Hypernatremia resolved. DC planning. Likely need IRU vs skilled prior to discharge. 06/18/17 At this point, patient could be converted to oral antibiotics and antibiotic coverage could be narrowed to cephalexin to finish 7 d course for UTI. CXR today showed no infiltrate and he has had no further cough or fever. Fecal impaction appears resolved based on KUB today and he has had multiple BMs in the last few days. PT worked with patient today. OT signed off on patient last week. 's concern is getting patient strong enough to go home. Discussed DC planning with . Doubt he would qualify for IRU and best option is likely SNU. Will discuss with Dr. Ojeda and case management. Clarified with nursing staff--pt's states pt went back into a-fib last night. Nurse reports PRN Cardizem was given b/c nurses noted on tele his rates were up and he was having bigemeny/trigemeny. Nurse reports pt was asymptomatic and no a-fib was ever noted. Sxs resolved after cardizem was given.
[2017-06-18] MEDS: SIMVASTATIN 40 MG TABLET PO SCH (20:06)
[2017-06-18] MEDS: TAMSULOSIN 0.4 MG CAPSULE PO SCH (20:06)
[2017-06-19] MEDS: OMEPRAZOLE 20 MG CAPSULE PO SCH ×2 (06:14→08:39)
[2017-06-19] MEDS: SENNA + DOCUSATE TABLET PO SCH (08:39)
[2017-06-19] MEDS: SERTRALINE 25 MG TABLET PO SCH (08:39)
[2017-06-19] MEDS: ASPIRIN *EC* 81 MG TABLET PO SCH (08:39)
[2017-06-19] MEDS: POLYETHYL GLYCOL 3350 17gm PACKET PO SCH (08:40)
--- NOTE | 2017-06-19 14:14 | Progress Note ---
- Date 06/19/17 Subjective: Patient is seen sitting in his chair this afternoon during therapy. reports she doesn't feel like she is able to take him home yet, although he is making gains. They've planned for him to go to [facility]. is tearful when talking about this, but thinks it is best for him. He is eating and drinking well. No fever, chest pain or shortness of breath. Objective Vital signs: Temperature 98.1 F 06/19/17 07:39 Pulse Rate 72 06/19/17 08:00 Respiratory Rate 16 06/19/17 07:39 Blood Pressure 119/69 06/19/17 07:39 Pulse Oximetry 94 06/19/17 11:37 Height/Weight/BMI: Height 1.83 m Weight 78.1 kg Body Mass Index 23.7 - Constitutional Present: no acute distress, well nourished, well developed - Routine HEENT Exam Head: Present: normocephalic, atraumatic - Routine Respiratory Exam Present: CTA bilaterally. Absent: wheezes - Routine Cardiovascular Exam Present: RRR, no murmur - Routine Abdominal Exam Present: soft, non distended, non tender - Routine Extremities Exam Present: no edema, normal capillary refill - Routine Skin Exam Present: dry, warm - Routine Neurological Exam Present: alert. Absent: normal speech - Routine Lymphatic Exam Lymphatic: Absent: adenopathy - Routine Psychiatric Exam Present: cooperative Results - Labs CBC & Chem 7: 06/18/17 04:33 06/18/17 04:33 Microbiology Results: Microbiology 06/13/17 17:42 Urine Legionella Urinary Antigen - Final 06/13/17 17:42 Urine Streptococcus pneumoniae Antigen (M - Final Assessment and Plan (1) UTI (urinary tract infection) Current visit: Yes Status: Acute Assessment and Plan: ASSESSMENT Severe sepsis (lactate = 3.0) secondary to E. coli UTI and/or pneumonia ( aspiration vs. 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 He is eating and drinking well. reports he has his "normal cough" back that is chronic for him. Today is the final day of cephalexin to complete a seven-day course to cover for UTI. Awaiting call from case management to determine if patient will go today or tomorrow to [facility]. 06/19/2017-9 PM-I reviewed this chart, the patient history, and the [employer]'s/PA's documented findings as above. We discussed and formulated the assessment and plan as above with the additions below.-Dr. Ojeda The patient was seen in the seating in his room accompanied by his . He was lying in bed comfortably and watching TV. His states he's eating and drinking well. She states that he did at one point this afternoon seem like he was having pain and had some tearing. He had just had a bowel movement. She states since that time he has not appeared to be in pain. Says states his stools are soft since being on the MiraLAX. She has no other concerns. On exam the patient is alert and in no acute distress. Chest is clear to auscultation. Cardiovascular reveals a regular rate and rhythm. Abdomen is soft and nontender. Extremities are free of edema. Impression Overall, the patient is improving. UTI has resolved. He is eating and drinking well. Plan is for [facility] to [facility] tomorrow for PT and OT to hopefully get him strong enough to go back home with his . Continue MiraLAX to prevent constipation/obstipation. - Physician Narrative Narrative: Date: 06/19/17 Time: 140 Hospital Course Summary Disclaimer: The visit summary below is not to be considered part of the above Progress Note. Hospital Course: 06/13/17 Admit, inpt status under the hospitalist service. Advanced directive: DPOA: Regina (). Living will: No feeding tube. Code status: DNR Severe sepsis: Repeat lactate showing downward trend. Hemodynamically stable on admit. Pneumonia (aspiration vs. CAP): Cefepime and clinda. DuoNeb QID. Consult speech therapy. UTI: History of urinary incontinence. Cont Cefepime. UC sent. Fecal impaction/constipation: Dulcolax suppository & cont bowel regimen. Zofran PRN. 06/14/17 Severe sepsis: Improving. WBC trending down (12). Remains hemodynamically stable. Pneumonia (aspiration vs. CAP): Evaluated by speech therapy: recommend pureed diet, nectar thick liquids, crushed meds in pudding. Urine legionella and strep pneumo antigens, sputum culture - pending UTI: UC + E. coli; sensitivities pending. Cont Cefepime. Hypernatremia (Na 148) : Change IVF to 1/2 NS at 75 ml/hr Fecal impaction/constipation: Improving. Several bowel movements since admission. Start Miralax to help with fecal impaction, worry stool is just oozing around impaction. 06/15/17 Severe sepsis : Resolved. WBC normal at 8.4. Remains hemodynamically stable. BC - no growth after 1 day Pneumonia (aspiration vs. CAP) : Continue abx, repeat CXR. Urine legionella and strep pneumo antigens - negative, sputum culture - pending UTI : UC + pansensitive E. coli; Cont Cefepime Hypernatremia : Resolved, Na 143. Decrease rate of IVF. Fecal impaction/constipation : Improving. Give enema d/t impaction. Continue MiraLAX. 06/16/17 Continue with cefepime and clindamycin for urine and lung coverage - clinically improving. WBC normal. Will d/c IVF as oral drive improved. Monitor HR secondary transient Afib/RVR overnight-resolved post IV diltiazem. Patient working with PT/OT/Speech to make functional gains. 06/17/17 +E.Coli UTI, possible aspiration Continue Clindamycin. Add Ceftriaxone, stop Cefepime. Nebulized treatments QID. Chronic dysphagia- pureed diet/nectar thick liquids. Transient Atrial Fib. HR now controlled. Fecal impaction appears resolved- multiple BM in the last few days. Will check KUB in am. Hypernatremia resolved. DC planning. Likely need IRU vs skilled prior to discharge. 06/18/17 At this point, patient could be converted to oral antibiotics and antibiotic coverage could be narrowed to cephalexin to finish 7 d course for UTI. CXR today showed no infiltrate and he has had no further cough or fever. Fecal impaction appears resolved based on KUB today and he has had multiple BMs in the last few days. PT worked with patient today. OT signed off on patient last week. 's concern is getting patient strong enough to go home. Discussed DC planning with . Doubt he would qualify for IRU and best option is likely SNU. Will discuss with Dr. Ojeda and case management. Clarified with nursing staff--pt's states pt went back into a-fib last night. Nurse reports PRN Cardizem was given b/c nurses noted on tele his rates were up and he was having bigemeny/trigemeny. Nurse reports pt was asymptomatic and no a-fib was ever noted. Sxs resolved after cardizem was given. 06/19/17 Will plan to discharge to [facility] today or tomorrow for further strengthening as patient's does not feel like she can handle him at home yet. He is eating and drinking well. reports he has his "normal cough" back that is chronic for him. Today is the final day of cephalexin to complete a seven-day course to cover for UTI. Awaiting call from case management to determine if patient will go today or tomorrow to [facility].
[2017-06-19] MEDS: ACETAMINOPHEN 650 MG/20.3 ML SOLUTION PO PRN (15:21)
[2017-06-19] MEDS: TAMSULOSIN 0.4 MG CAPSULE PO SCH (21:35)
[2017-06-19] MEDS: SALINE FLUSH 10ml SYRINGE IVF PRN (21:35)
[2017-06-19] MEDS: SIMVASTATIN 40 MG TABLET PO SCH (21:35)
[2017-06-20 00:11] VITALS: PULSE 71
[2017-06-20 07:40] VITALS: BP 136/70; RESP 14; TEMP 97.8
[2017-06-20 08:03] VITALS: O2SAT 93
[2017-06-20] MEDS: ASPIRIN *EC* 81 MG TABLET PO SCH (09:03)
[2017-06-20] MEDS: SENNA + DOCUSATE TABLET PO SCH (09:03)
[2017-06-20] MEDS: POLYETHYL GLYCOL 3350 17gm PACKET PO SCH (09:03)
[2017-06-20] MEDS: SERTRALINE 25 MG TABLET PO SCH (09:04)
[2017-06-20] MEDS: OMEPRAZOLE 20 MG CAPSULE PO SCH (09:05)
--- NOTE | 2017-06-20 09:50 | Discharge Summary ---
Discharge Information Date of admission: 06/13/17 14:59 Anticipated date of discharge: 06/20/17 Attending Physician: Samara Ojeda MD - Discharge Diagnosis (1) UTI (urinary tract infection) Status: Acute Severe sepsis (lactate = 3.0) secondary to E. coli UTI and/or pneumonia ( aspiration vs. 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 Hyperlipidemia KARRI on CPAP Dysphagia - baseline diet is pureed with nectar thick liquids - Laboratory Labs: 06/18/17 04:33 06/18/17 04:33 Laboratory Tests 06/18/17 04:33 TSH 3.21 - Microbiology Microbiology Urine culture: e coli - pansensitive 06/13/17 17:42 Urine Legionella Urinary Antigen - Final-Negative 06/13/17 17:42 Urine Streptococcus pneumoniae Antigen (M - Final-Negative Neg blood cultures - Radiology Radiology: Date of Exam: 06/13/17 EXAM: CT abdomen pelvis w con HISTORY: AMS, fever, vomiting FINDINGS: LUNG BASES: There are bilateral lower lobe patchy areas of consolidation in the posterior aspect of both lower lobes consistent with bilateral lower lobe infiltrates. LIVER: The liver is normal size and contour showing no discrete lesions. SPLEEN: The spleen is normal size and contour showing no discrete lesions. GALLBLADDER/BILIARY: The gallbladder is normal in caliber showing no stones or wall thickening. There is no evidence of intra or extrahepatic biliary dilatation. PANCREAS: The pancreas is normal size and contour showing no obvious discrete lesions, abnormal enhancement, ductal dilatation or peripancreatic inflammatory change. ADRENAL GLANDS: The adrenal glands are not enlarged. KIDNEYS: The kidneys are symmetrical size, contour and enhancement showing no evidence of hydronephrosis, nephrocalcinosis or enhancing lesions. VASCULAR: The abdominal aorta and IVC are normal caliber. LYMPH NODES: No abdominal pelvic adenopathy there is mild to moderate scattered plaque formation in the abdominal aorta and iliac arteries. STOMACH/BOWEL LOOPS: The stomach is partially distended and is otherwise unremarkable. The bowel loops are normal course and caliber. There is no evidence of mechanical bowel obstruction or acute inflammatory bowel process. Scattered diverticula are seen along the course of the colon without evidence of diverticulitis. There is prominent retained fecal material within the colon and rectal vault. A normal appendix is visualized. URINARY BLADDER: The urinary bladder is normal size showing mild diffuse thickening of the bladder wall. There is mass effect on the base of the bladder by an enlarged prostate gland. PROSTATE: Enlarged measuring 5.4 cm appearing smoothly marginated. OSSEOUS STRUCTURES: Moderate degenerative lumbar spondylosis is evident. There is severe narrowing of the L5-S1 disc space with vacuum disc phenomenon. No acute fractures or focal destructive lesions are identified. PERITONEAL CAVITY: No free air or free fluid ABDOMINAL WALL: There is a small fat-containing periumbilical hernia. There are small bilateral fat-containing inguinal hernias. IMPRESSION: 1. Acute posterior bilateral lower lobe infiltrates. The location of bilateral lower lobe infiltrates is concerning and clinical correlation is recommended to exclude aspiration pneumonia. 2. Constipation with fecal impaction. 3. Diverticulosis coli without obvious evidence of diverticulitis. 4. No evidence of acute appendicitis. 5. Diffuse thickening of the wall the urinary bladder which is likely on the basis of hypertrophy from a letter obstruction though and cystitis is not excluded. 6. Prostatomegaly. = = = = = = = = = = = = = = = = = = = = = = = = = = = = = = = = = = = = = = = = = = = = = = = = = = = = = = = = = = = Date of Exam: 06/13/17 EXAM: XR chest 1V HISTORY: AMS, fever, vomiting The lung liao are hypoventilated. The heart appears borderline enlarged which may be artifactual due to the hypoventilated state. The trachea is midline is no evidence of mediastinal widening. There are streaky/patchy opacities at the lung bases bilaterally. There is a suspected more focal acute infiltrate in the left suprahilar region superimposed in the region of the left first rib articulation with the manubrium. The costophrenic angles are clear. There is no evidence of a pneumothorax or pleural effusion. The bony thorax appears stable. There is artifact from cardiac monitoring lead wires over the chest. IMPRESSION: 1. The lung liao are hypoventilated with bibasilar streaky/patchy opacities likely reflecting atelectasis and/or early interstitial infiltrate. A more focal acute opacity suspected in the left suprahilar region. 2. The heart is borderline size likely artifactual due to the hypoventilated state. There are no overt congestive changes. = = = = = = = = = = = = = = = = = = = = = = = = = = = = = = = = = = = = = = = = = = = = = = = = = = = = = = = = = = = Date of Exam: 06/18/17 INDICATION: F/U infiltrate PROCEDURE: CHEST 2-VIEWS UPRIGHT (PA & LAT) FINDINGS: The lungs are clear without evidence of focal abnormal airspace opacity. There is no pleural effusion or pneumothorax. The heart size, mediastinal contours and pulmonary vascularity are within normal limits. There is no significant skeletal abnormality. IMPRESSION: No acute cardiopulmonary disease. = = = = = = = = = = = = = = = = = = = = = = = = = = = = = = = = = = = = = = = = = = = = = = = = = = = = = = = = = = = Date of Exam: 06/18/17 Indication: Constipation PROCEDURE: XR KUB: Findings: The visualized lung bases are clear. The bowel gas pattern is nonobstructive and nonspecific. Gas is seen in nondilated small and large bowel to the level of the rectum. Interval decrease in stool burden. The bony structures are grossly unremarkable. Impression: Nonobstructive nonspecific bowel gas pattern. Decrease in colonic stool burden. History of Present Illness HPI: Note: history is obtained from Baljit's , Regina, and their daughter, Linda. He began having symptoms of dementia about 10 years ago and was diagnosed with frontal temporal degeneration in 2010. He is nonverbal at baseline but still smiles and recognizes family. He is able to stand up with assist of 1 using a gait belt for transfers but no longer ambulates. He has a history of dysphagia and is on a pureed diet with nectar thick liquids. Per Regina, he when he woke up this morning he wasn't as alert as usual. It took him 2 hours to eat his breakfast which was unusual. He wasn't able to hold his cup of water well, and ended up spilling it on his shirt. He didn't seem to have energy to transfer to the toilet. His right leg often doesn't work right but it was worse today. He had a fever of 101 degrees, and she gave him some Tylenol which improved his temp to 99. He had a runny nose on 06/09. When he coughs he tends to swallow the mucous back. He hasn't had any problems breathing but his home health aid thought he was coughing "a lot". He also had "projectile" vomiting today x2 both which looked bilious. He's incontinent of urine which is chronic; also his urine looks dark in the morning but nothing else has been unusual. He has a history of constipation and last BM was 06/11, no blood seen. No diarrhea. He occasionally holds his stomach but she doesn't think he's in pain. Regina called 911 and he was transferred to [facility]. He had a fever of 100.9 and was tachypneic with a RR of 25. WBC was elevated at Objective Vital signs: Temperature 97.8 F 06/20/17 07:39 Pulse Rate 71 06/20/17 07:39 Respiratory Rate 14 06/20/17 07:39 Blood Pressure 136/70 06/20/17 07:39 Pulse Oximetry 93 06/20/17 08:03 Height/Weight/BMI: Height 1.83 m Weight 76.9 kg Body Mass Index 23.7 - Constitutional Present: no acute distress, well nourished, well developed - Routine HEENT Exam Head: Present: normocephalic, atraumatic - Routine Respiratory Exam Present: CTA bilaterally. Absent: wheezes - Routine Cardiovascular Exam Present: RRR, no murmur - Routine Abdominal Exam Present: soft, non distended, non tender - Routine Extremities Exam Present: no edema, normal capillary refill - Routine Skin Exam Present: dry, warm - Routine Neurological Exam Present: alert - Routine Lymphatic Exam Lymphatic: Absent: adenopathy - Routine Psychiatric Exam Present: cooperative Hospital Course This is a general summary of the patient's hospital course. For more details refer to the complete medical record. Hospital course: 06/13/17 Admit, inpt status under the hospitalist service. Advanced directive: DPOA: Regina (). Living will: No feeding tube. Code status: DNR Severe sepsis: Repeat lactate showing downward trend. Hemodynamically stable on admit. Pneumonia (aspiration vs. CAP): Cefepime and clinda. DuoNeb QID. Consult speech therapy. UTI: History of urinary incontinence. Cont Cefepime. UC sent. Fecal impaction/constipation: Dulcolax suppository & cont bowel regimen. Zofran PRN. 06/14/17 Severe sepsis: Improving. WBC trending down (12). Remains hemodynamically stable. Pneumonia (aspiration vs. CAP): Evaluated by speech therapy: recommend pureed diet, nectar thick liquids, crushed meds in pudding. Urine legionella and strep pneumo antigens, sputum culture - pending UTI: UC + E. coli; sensitivities pending. Cont Cefepime. Hypernatremia (Na 148) : Change IVF to 1/2 NS at 75 ml/hr Fecal impaction/constipation: Improving. Several bowel movements since admission. Start Miralax to help with fecal impaction, worry stool is just oozing around impaction. 06/15/17 Severe sepsis : Resolved. WBC normal at 8.4. Remains hemodynamically stable. BC - no growth after 1 day Pneumonia (aspiration vs. CAP) : Continue abx, repeat CXR. Urine legionella and strep pneumo antigens - negative, sputum culture - pending UTI : UC + pansensitive E. coli; Cont Cefepime Hypernatremia : Resolved, Na 143. Decrease rate of IVF. Fecal impaction/constipation : Improving. Give enema d/t impaction. Continue MiraLAX. 06/16/17 Continue with cefepime and clindamycin for urine and lung coverage - clinically improving. WBC normal. Will d/c IVF as oral drive improved. Monitor HR secondary transient Afib/RVR overnight-resolved post IV diltiazem. Patient working with PT/OT/Speech to make functional gains. 06/17/17 +E.Coli UTI, possible aspiration Continue Clindamycin. Add Ceftriaxone, stop Cefepime. Nebulized treatments QID. Chronic dysphagia- pureed diet/nectar thick liquids. Transient Atrial Fib. HR now controlled. Fecal impaction appears resolved- multiple BM in the last few days. Will check KUB in am. Hypernatremia resolved. DC planning. Likely need IRU vs skilled prior to discharge. 06/18/17 At this point, patient could be converted to oral antibiotics and antibiotic coverage could be narrowed to cephalexin to finish 7 d course for UTI. CXR today showed no infiltrate and he has had no further cough or fever. Fecal impaction appears resolved based on KUB today and he has had multiple BMs in the last few days. PT worked with patient today. OT signed off on patient last week. 's concern is getting patient strong enough to go home. Discussed DC planning with . Doubt he would qualify for IRU and best option is likely SNU. Will discuss with Dr. Ojeda and case management. Clarified with nursing staff--pt's states pt went back into a-fib last night. Nurse reports PRN Cardizem was given b/c nurses noted on tele his rates were up and he was having bigemeny/trigemeny. Nurse reports pt was asymptomatic and no a-fib was ever noted. Sxs resolved after cardizem was given. 06/19/17 Will plan to discharge to [facility] today or tomorrow for further strengthening as patient's does not feel like she can handle him at home yet. He is eating and drinking well. reports he has his "normal cough" back that is chronic for him. Today is the final day of cephalexin to complete a seven-day course to cover for UTI. Awaiting call from case management to determine if patient will go today or tomorrow to [facility]. 06/20/17 DC to [facility] today. Doing well but unable to care for him at home at this time due to weakness. Time spent with patient: discharge greater than 30 minutes Resuscitation Status: Do Not Resuscitate Discharge Plan - Discharge Disposition Discharge Date: 06/20/17 Disposition: 03 To SNU Not [facility] (SNF) *Condition: Improved Reason For Visit (Visit label in EMR): Pneumonia,severe sepsis - Discharge Medications *Discharge Medications: New Acetaminophen [Tylenol] 325 - 650 mg PO Q5H PRN solution PRN Reason: Pain Continue Simvastatin 40 mg PO HS #0 Sertraline HCl [Zoloft] 1.25 ml PO DAILY Sennosides/Docusate Sodium [Senna-S Tablet] 1 each PO DAILY Aspirin [Ecotrin] 81 mg PO DAILY Omeprazole 40 mg PO DAILY #0 Tamsulosin [Flomax] 0.4 mg PO HS Discontinued Acetaminophen [Children's Tylenol] 15 ml PO PRN PRN PRN Reason: Pain - Discharge Packet/Instructions *Diet: Regular diet: Fluids - syrup/nectar consistency. Foods - pureed. Crush meds in pudding *Activity: As tolerated. *Pain Management/Treatment: n/a *Wound Care: n/a Additional Instructions: Follow up with [facility] once you are back home. *Notify Physician if: You develop fever or shortness of breath *During Business Hours Contact: Nurse at [facility] *After Business Hours Contact: Nurse at [facility] *Pending Lab/Results: No Pending Lab - Referrals/Follow Up - Patient Handouts Patient Handouts: Sepsis (GEN), Pneumonia (GEN) - Dismissal Complete Discharge Instructions are:: Complete Physician Narrative - Narrative Physician: Samara Ojeda MD Attestation Narrative: Date: 06/20/17 Time: 1:35 PM-I reviewed this chart, the patient history, and the [employer] CONSULTANT's/PA's documented findings as above. We discussed and formulated the assessment and plan as above with the additions below.-Dr. Ojeda The patient was seen this afternoon accompanied by his . He is sitting up in a chair and appears in no distress. His states he is eating well and it is reported that he is eating 100% of all of his meals. His states he has an occasional cough but not with eating or drinking. He has not had any reported fevers. Vital signs of been stable. On exam he is alert and in no acute distress. No coughing during my visit. Oropharynx is moist. Neck is supple. Chest is clear to auscultation from the anterior and posterior. Cardiovascular reveals a regular rate and rhythm. Abdomen is soft and nontender. Extremities are free of edema. Impression and plan Severe sepsis secondary to UTI and possible pneumonia-resolved Constipation with fecal impaction-resolved Generalized weakness-patient continues to have weakness but has improved since the time of admission. Plan is for transfer to fdc unit today for additional strengthening prior to discharging back to home under the care of his .
--- NOTE | 2017-06-20 10:22 | Extended Care Facility Orders ---
<QuezadaRita Sadi - Last Filed: 06/20/17 10:21> Admission Orders Admit to:: Residential Allergies/Adverse Reactions: Allergies No Known Allergies Allergy (Verified 06/13/17 12:37) Admitting Diagnosis: Pneumonia,severe sepsis Admitting Physician: Samara Ojeda MD Attending Physician: Samara Ojeda MD Code Status: Do Not Resuscitate Anticiapted Length of Stay: 30 days or less Rehab Potential: fair Rehab Prognosis: fair Diet: 06/14/17 Lunch Regular Diet [DIET] Diet Modifications: Fluid Consistency: SYRNEC Food Consistency: PUREE Comment: crush meds in pudding May use Facility Protocol or Standing Orders: Yes May have flu vaccine: Yes Evaluations/Treatment: PT, OT Residential Certification: I certify that SNF services are required to be given on an Inpatient basis because of the patients need for [facility] care on a continuing basis for the condition(s) for which he/she received inpatient hospital services prior to his/her transfer to the SNF. SNF inpatient care is necessary for the following reasons Indication for Residential: Other (PT/OT) - Additional Information In Event of Arrest: Do Not Start CPR Resident is Aware of Diagnosis: No (due to mental status) <Samara Ojeda - Last Filed: 06/20/17 13:25> Admission Orders Admitting Diagnosis: Pneumonia,severe sepsis Admitting Physician: Samara Ojeda MD Attending Physician: Samara Ojeda MD Code Status: Do Not Resuscitate Diet: 06/14/17 Lunch Regular Diet [DIET] Diet Modifications: Fluid Consistency: SYRNEC Food Consistency: PUREE Comment: crush meds in pudding Residential Certification: I certify that SNF services are required to be given on an Inpatient basis because of the patients need for [facility] care on a continuing basis for the condition(s) for which he/she received inpatient hospital services prior to his/her transfer to the SNF. SNF inpatient care is necessary for the following reasons
== END 2017-06-20 14:44 | DRG 871 ==
LOC: ED 11:51 → MED 14:59 → SUATTDRO 14:59 → MED 15:26
PROVIDERS: ADMIT Hospitalist; ATTEND Internal Medicine